=== PATIENT | male | born 1980 | race Caucasian/White ===

== ENCOUNTER 2018-10-14 20:04 | Inpatient (IN) | payer MEDICAID, OTHER ==
[~2018-10-14] VITALS: Ht 175.3 cm; Wt 74.1 kg
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
[2018-10-14] MEDS ORDERED: LORazepam 2 MG/ML, 1ML ONE ×4 (20:15→22:00)
[2018-10-14] MEDS ORDERED: ADENOSINE 6 MG/2 ML ONE (20:23)
--- NOTE | 2018-10-14 20:27 | NUR ---
REPORT OF PT TO MANOJ LUIS AND ALL QUESTIONS ANSWERED. PT MOVED FROM ROOM TO TRAUMA ROOM PER DR. MÁRQUEZ. GERMAIN PRICE ACCURACY SUPERVISOR NOTIFIED. PT MOVED TO TRAUMA 4 AT THIS TIME.
[2018-10-14] MEDS ORDERED: DIAZEPAM 5 MG/ML, 2ML IVPush PRN (20:30)
[2018-10-14] MEDS ORDERED: SODIUM CHLORIDE 0.9% 1,000ML IVBOLUS ONE ×2 (20:30→21:30)
[2018-10-14] MEDS ORDERED: ONDANSETRON 2MG/ML, 2ML IVPush ONE (20:30)
[2018-10-14] MEDS ORDERED: LORazepam 2 MG/ML, 1ML IVPush PRN (20:30)
[2018-10-14] MEDS ORDERED: MAGNESIUM SULFATE 1 GM, THIAMINE 100 MG, FOLIC ACID 1 MG, MVI ADULT 10 ML in SODIUM CHL... IV ONE (20:30)
[2018-10-14] MEDS ORDERED: SODIUM CHLORIDE FLUSH 10ML SYR IVF ONE (20:30)
[2018-10-14] MEDS ORDERED: ADENOSINE 6 MG/2 ML IVPush ONE ×3 (20:30→21:00)
[2018-10-14] MEDS ORDERED: LORazepam 2 MG/ML, 1ML IVPush ONE ×2 (20:30→21:00)
[2018-10-14] MEDS ORDERED: DILTIAZEM 5 MG/ML, 5ML ONE (20:33)
[2018-10-14] MEDS ORDERED: DILTIAZEM 125 MG in SODIUM CHLORIDE 0.9% 100 ML IV SCH (20:36)
--- NOTE | 2018-10-14 20:38 | NUR ---
TASK RN: PT TRANSFERED TO T4 FOLLOWING WITNESS SZ. PT POSTICTAL SP SZ. HR 200'S. PT MEDICATED PER ERP VERBAL ORDER FOR TX OF PRESUMED SVT. ERP AT BEDSIDE. ADENOSINE GIVEN WO CHANGE IN ARRHYTHMIA. VERBAL ORDER RECIEVED FOR CARDIZEM, 10MG W IMPROVEMENT IN HR. PT IN AFIB RVR, RATE 150'S. RESPIRATIONS EVEN/UNLABORED. POSSIBLE LACERATION NOTED ON TONGUE; AIRWAY PATENT. PT DOES NOT APPEAR TO HAVE BEEN INCONTINENT. PT ALERT, ORIENTED TO SELF AND DATE W/ GRADUAL IMPROVEMENT ORIENTATION. CARDIZEM REQUESTED FROM PHARMACY.
[2018-10-14 20:59] LABS: ALANINE AMINOTRANSFERASE 159 U/L (12-78); ALBUMIN 3.4 g/dL (3.4-5.0); ANION GAP 29 mmol/L (5-15); CALCIUM 8.7 mg/dL (8.5-10.1); CHLORIDE 90 mmol/L (98-107); CREATININE 1.33 mg/dL (0.7-1.3)
[2018-10-14] MEDS ORDERED: ONDANSETRON 2MG/ML, 2ML ONE (21:00)
[2018-10-14] MEDS ORDERED: DILTIAZEM 5 MG/ML, 5ML IV ONE (21:00)
[2018-10-14] MEDS ORDERED: MIDAZOLAM 1 MG/ML, 2ML IVPush ONE (21:00)
[2018-10-14] MEDS ORDERED: MIDAZOLAM 1 MG/ML, 2ML ONE (21:00)
[2018-10-14 21:02] LABS: ALKALINE PHOSPHATASE 121 U/L (45-117); BILIRUBIN,TOTAL 1.7 mg/dL (0.2-1.0); TOTAL PROTEIN 7.9 g/dL (6.4-8.2)
--- NOTE | 2018-10-14 21:13 | NUR ---
HOSPITALIST AT BEDSIDE FOR ASSESSMENT
--- NOTE | 2018-10-14 21:13 | NUR ---
PT HR STILL ELEVATED 160-180, CARDIZEM DRIP GOING WELL FLUIDS. VERSED AND ATIVAN GIVEN. AWARE
[2018-10-14] MEDS ORDERED: METOPROLOL 1 MG/ML, 5ML ONE (21:15)
--- NOTE | 2018-10-14 21:19 | NUR ---
INSTRUCTIONS FROM HOSPITALIST TO INCREASE CARDIZEM DRIP FROM 10 TO 15 IF HR PERSISTS ABOVE 150.
[2018-10-14] MEDS ORDERED: METOPROLOL 1 MG/ML, 5ML IVPush STA (21:20)
--- NOTE | 2018-10-14 21:21 | NUR ---
METOPROLOL 5MG IV GIVEN PER VERBAL ORDER. HR DECREASING FROM 160-170 DOWN TO 130S. WILL CONTINUE TO MONITOR
[2018-10-14 21:22] LABS: BASOPHILS # (AUTO) 0.02 x10^3/uL (0-0.1); BASOPHILS % (AUTO) 0 % (0-1); EOSINOPHILS % (AUTO) 0 % (1-7); LYMPHOCYTES # (AUTO) 0.72 x10^3/uL (1-3.4); LYMPHOCYTES % (AUTO) 3 % (22-44); MD SCAN; MEAN CORPUSCULAR HGB CONC 33.6 g/dL (33.2-36.2); MEAN PLATELET VOLUME 11.1 fL (7.4-10.4); MONOCYTES # (AUTO) 2.32 x10^3/uL (0.2-0.8); MONOCYTES % (AUTO) 10 % (2-9); NEUTROPHILS # (AUTO) 21.21 x10^3/uL (1.8-6.8); NEUTROPHILS % (AUTO) 87 % (42-75); PLATELET COUNT 90 x10^3/uL (130-400); RED BLOOD COUNT 4.06 x10^6/uL (4.38-5.82); RED CELL DISTRIBUTION WIDTH 13.4 % (9.4-14.8)
[2018-10-14 21:42] LABS: SALICYLATE LEVEL < 1.7 mg/dL (2.8-20.0)
[2018-10-14 21:52] LABS: CULTURE INDICATED? YES; MICROSCOPIC INDICATED
--- NOTE | 2018-10-14 21:54 | NUR ---
REPORT GIVEN TO LEVON ARANDA, PT READY FOR TRANSPORT TO FLOOR
[2018-10-14 21:57] LABS: AMPHETAMINE SCREEN, URINE Negative (Negative); BARBITURATE SCREEN, URINE Negative (Negative); BENZODIAZEPINE SCREEN, URINE Negative (Negative); CANNABINOID SCREEN, URINE Negative (Negative); COCAINE SCREEN, URINE Negative (Negative); METHADONE SCREEN, URINE Negative (Negative); OPIATE SCREEN, URINE Negative (Negative)
[2018-10-14] MEDS ORDERED: PHENOBARBITAL ETOH DETOX PER PHARMACY MC PRN (22:00)
[2018-10-14] MEDS ORDERED: MAGNESIUM SULFATE PMX 2GM/50ML 50 ML IV ONE (22:00)
[2018-10-14] MEDS ORDERED: SODIUM CHLORIDE 0.9% IV ONE (22:30)
[2018-10-14] MEDS ORDERED: PHENOBARBITAL SODIUM IV ONE (22:30)
[2018-10-15] MEDS ORDERED: MIDAZOLAM 1 MG/ML, 2ML IVPush ONE (00:30)
[2018-10-15] MEDS ORDERED: SODIUM CHLORIDE 0.9% IV ONE ×2 (01:30→19:30)
[2018-10-15] MEDS ORDERED: PHENOBARBITAL SODIUM IV ONE (01:30)
[2018-10-15 03:05] LABS: MEAN CORPUSCULAR HEMOGLOBIN 36.1 pg (27.5-34.5); MEAN CORPUSCULAR HGB CONC 33.4 g/dL (33.2-36.2); MEAN CORPUSCULAR VOLUME 108.2 fL (81-97); MEAN PLATELET VOLUME 10.5 fL (7.4-10.4); PLATELET COUNT 79 x10^3/uL (130-400); RED BLOOD COUNT 3.83 x10^6/uL (4.38-5.82); RED CELL DISTRIBUTION WIDTH 13.9 % (9.4-14.8)
[2018-10-15 03:06] LABS: BASOPHILS % (AUTO) 0 % (0-1); EOSINOPHILS % (AUTO) 0 % (1-7); LYMPHOCYTES # (AUTO) 0.47 x10^3/uL (1-3.4); LYMPHOCYTES % (AUTO) 3 % (22-44); MD SCAN; MONOCYTES # (AUTO) 1.45 x10^3/uL (0.2-0.8); MONOCYTES % (AUTO) 9 % (2-9); NEUTROPHILS # (AUTO) 13.94 x10^3/uL (1.8-6.8); NEUTROPHILS % (AUTO) 88 % (42-75)
[2018-10-15 04:00] VITALS: BP 121/72
[2018-10-15 04:36] LABS: MEAN CORPUSCULAR HEMOGLOBIN 36.9 pg (27.5-34.5); MEAN CORPUSCULAR HGB CONC 34.1 g/dL (33.2-36.2); MEAN CORPUSCULAR VOLUME 108.3 fL (81-97); RED BLOOD COUNT 3.64 x10^6/uL (4.38-5.82); RED CELL DISTRIBUTION WIDTH 13.7 % (9.4-14.8)
[2018-10-15 04:38] LABS: ALANINE AMINOTRANSFERASE 130 U/L (12-78); ALBUMIN 3.2 g/dL (3.4-5.0); ANION GAP 16 mmol/L (5-15); CALCIUM 8.3 mg/dL (8.5-10.1); CHLORIDE 99 mmol/L (98-107); CREATININE 0.81 mg/dL (0.7-1.3)
[2018-10-15 04:48] LABS: ALKALINE PHOSPHATASE 103 U/L (45-117); BILIRUBIN,TOTAL 1.7 mg/dL (0.2-1.0); THYROID STIMULATING HORMONE 0.515 mIU/L (0.358-3.740); TOTAL PROTEIN 6.9 g/dL (6.4-8.2)
[2018-10-15] MEDS: SODIUM CHLORIDE 0.9% 1,000 ML IV SCH ×2 (04:53→05:19)
[2018-10-15] MEDS ORDERED: MAGNESIUM SULFATE PMX 2GM/50ML 50 ML ONE (04:55)
[2018-10-15 05:40] LABS: BASOPHILS % (AUTO) 0 % (0-1); EOSINOPHILS % (AUTO) 0 % (1-7); LYMPHOCYTES # (AUTO) 0.33 x10^3/uL (1-3.4); LYMPHOCYTES % (AUTO) 2 % (22-44); MD SCAN; MEAN PLATELET VOLUME 11.1 fL (7.4-10.4); MONOCYTES # (AUTO) 1.17 x10^3/uL (0.2-0.8); MONOCYTES % (AUTO) 9 % (2-9); NEUTROPHILS # (AUTO) 12.13 x10^3/uL (1.8-6.8); NEUTROPHILS % (AUTO) 89 % (42-75); PLATELET COUNT 73 x10^3/uL (130-400)
[2018-10-15] MEDS ORDERED: SODIUM PHOSPHATE 20 MMOL in SODIUM CHLORIDE 0.9% 500 ML IV ONE (07:00)
[2018-10-15] MEDS ORDERED: POTASSIUM CHLORIDE 20 MEQ, MAGNESIUM SULFATE 1 GM, FOLIC ACID 1 MG, THIAMINE 200 MG, MV... IV SCH (09:00)
[2018-10-15] MEDS: LACTULOSE 20 GM/30 ML UDC PO SCH ×2 (09:16→21:40)
[2018-10-15] MEDS: FAMOTIDINE 20 MG/2 ML IVPush SCH ×2 (09:16→21:40)
[2018-10-15] MEDS: PHENOBARBITAL SODIUM 65 MG/ML, 1ML IM SCH (11:49)
[2018-10-15] MEDS ORDERED: POTASSIUM PHOSPHATE IV ONE (19:30)
[2018-10-15] MEDS ORDERED: POTASSIUM PHOSPHATE 66 MEQ in SODIUM CHLORIDE 0.9% 1,000 ML IV ONE (20:00)
[2018-10-15] MEDS ORDERED: SODIUM CHLORIDE 0.9% 1,000 ML IV SCH (21:27)
[2018-10-16] MEDS: PHENOBARBITAL SODIUM 65 MG/ML, 1ML IM SCH (00:52)
[2018-10-16 04:00] VITALS: BP 116/84
[2018-10-16 04:18] LABS: MEAN CORPUSCULAR VOLUME 108.7 fL (81-97); MEAN PLATELET VOLUME 11.2 fL (7.4-10.4); PLATELET COUNT 81 x10^3/uL (130-400); RED BLOOD COUNT 3.28 x10^6/uL (4.38-5.82); RED CELL DISTRIBUTION WIDTH 13.7 % (9.4-14.8)
[2018-10-16 04:28] LABS: ALANINE AMINOTRANSFERASE 120 U/L (12-78); ALBUMIN 2.9 g/dL (3.4-5.0); ANION GAP 10 mmol/L (5-15); CALCIUM 8.3 mg/dL (8.5-10.1); CHLORIDE 100 mmol/L (98-107); CREATININE 0.57 mg/dL (0.7-1.3)
[2018-10-16 04:31] LABS: ALKALINE PHOSPHATASE 122 U/L (45-117); BILIRUBIN,TOTAL 1.2 mg/dL (0.2-1.0); TOTAL PROTEIN 6.6 g/dL (6.4-8.2)
[2018-10-16 04:44] LABS: BASOPHILS # (AUTO) 0.02 x10^3/uL (0-0.1); BASOPHILS % (AUTO) 0 % (0-1); EOSINOPHILS # (AUTO) 0.01 x10^3/uL (0-0.4); EOSINOPHILS % (AUTO) 0 % (1-7); LYMPHOCYTES # (AUTO) 0.56 x10^3/uL (1-3.4); LYMPHOCYTES % (AUTO) 5 % (22-44); MD SCAN; MONOCYTES # (AUTO) 1.25 x10^3/uL (0.2-0.8); MONOCYTES % (AUTO) 11 % (2-9); NEUTROPHILS # (AUTO) 9.53 x10^3/uL (1.8-6.8); NEUTROPHILS % (AUTO) 84 % (42-75)
[2018-10-16] MEDS: PHENOBARBITAL 20 MG/5 ML ORAL SOL PO SCH ×2 (09:39→21:16)
[2018-10-16] MEDS: POTASSIUM CHLORIDE 20 MEQ TAB.ER.PRT PO SCH ×2 (09:39→18:13)
[2018-10-16] MEDS: FAMOTIDINE 20 MG/2 ML IVPush SCH (09:39)
[2018-10-16] MEDS: NEUTRA PHOS K 250 MG TABLET PO SCH ×2 (09:39→21:16)
[2018-10-16 20:33] VITALS: BP 116/80
[2018-10-16] MEDS ORDERED: FAMOTIDINE 20 MG TABLET ONE (21:10)
[2018-10-16] MEDS: FAMOTIDINE 20 MG TABLET PO SCH (21:16)
[2018-10-16 22:25] VITALS: BP 124/80
[2018-10-17 01:56] VITALS: BP 124/84
[2018-10-17 06:37] LABS: MEAN CORPUSCULAR HEMOGLOBIN 36.9 pg (27.5-34.5); MEAN CORPUSCULAR HGB CONC 33.7 g/dL (33.2-36.2); MEAN CORPUSCULAR VOLUME 109.5 fL (81-97); PLATELET COUNT 148 x10^3/uL (130-400); RED BLOOD COUNT 3.62 x10^6/uL (4.38-5.82); RED CELL DISTRIBUTION WIDTH 14.1 % (9.4-14.8)
[2018-10-17 06:46] LABS: ALANINE AMINOTRANSFERASE 167 U/L (12-78); ALBUMIN 3.1 g/dL (3.4-5.0); ANION GAP 8 mmol/L (5-15); CALCIUM 8.8 mg/dL (8.5-10.1); CHLORIDE 98 mmol/L (98-107); CREATININE 0.56 mg/dL (0.7-1.3)
[2018-10-17 06:49] LABS: ALKALINE PHOSPHATASE 144 U/L (45-117); BILIRUBIN,TOTAL 1.5 mg/dL (0.2-1.0); TOTAL PROTEIN 7.5 g/dL (6.4-8.2)
[2018-10-17 07:17] LABS: BASOPHILS # (AUTO) 0.07 x10^3/uL (0-0.1); BASOPHILS % (AUTO) 1 % (0-1); EOSINOPHILS # (AUTO) 0.08 x10^3/uL (0-0.4); EOSINOPHILS % (AUTO) 1 % (1-7); LYMPHOCYTES # (AUTO) 1.16 x10^3/uL (1-3.4); LYMPHOCYTES % (AUTO) 10 % (22-44); MD SCAN; MONOCYTES # (AUTO) 1.51 x10^3/uL (0.2-0.8); MONOCYTES % (AUTO) 13 % (2-9); NEUTROPHILS # (AUTO) 8.81 x10^3/uL (1.8-6.8); NEUTROPHILS % (AUTO) 76 % (42-75)
[2018-10-17 07:19] VITALS: BP 112/72
[2018-10-17] MEDS: PHENOBARBITAL 20 MG/5 ML ORAL SOL PO SCH ×2 (09:26→20:37)
[2018-10-17] MEDS: NEUTRA PHOS K 250 MG TABLET PO SCH ×2 (09:26→20:37)
[2018-10-17] MEDS: FAMOTIDINE 20 MG TABLET PO SCH ×2 (09:27→20:37)
[2018-10-17 12:55] VITALS: BP 118/72
[2018-10-17 19:14] VITALS: BP 108/75
[2018-10-18 01:13] VITALS: BP 118/81
[2018-10-18 05:55] LABS: MEAN CORPUSCULAR HGB CONC 33.5 g/dL (33.2-36.2); MEAN CORPUSCULAR VOLUME 107.5 fL (81-97); MEAN PLATELET VOLUME 8.9 fL (7.4-10.4); PLATELET COUNT 213 x10^3/uL (130-400); RED CELL DISTRIBUTION WIDTH 13.9 % (9.4-14.8)
[2018-10-18 06:09] LABS: CHLORIDE 100 mmol/L (98-107)
[2018-10-18 06:16] LABS: ANION GAP 8 mmol/L (5-15); CALCIUM 8.8 mg/dL (8.5-10.1); CREATININE 0.55 mg/dL (0.7-1.3)
[2018-10-18 07:04] VITALS: BP 111/76
[2018-10-18 07:27] LABS: BASOPHILS # (AUTO) 0.05 x10^3/uL (0-0.1); BASOPHILS % (AUTO) 0 % (0-1); EOSINOPHILS # (AUTO) 0.15 x10^3/uL (0-0.4); EOSINOPHILS % (AUTO) 1 % (1-7); LYMPHOCYTES # (AUTO) 1.22 x10^3/uL (1-3.4); LYMPHOCYTES % (AUTO) 10 % (22-44); MD SCAN; MONOCYTES # (AUTO) 1.75 x10^3/uL (0.2-0.8); MONOCYTES % (AUTO) 15 % (2-9); NEUTROPHILS # (AUTO) 8.55 x10^3/uL (1.8-6.8); NEUTROPHILS % (AUTO) 73 % (42-75)
[2018-10-18 08:11] LABS: BILIRUBIN, DIRECT 0.3 mg/dL (0.1-0.2)
[2018-10-18 08:13] LABS: BILIRUBIN,INDIRECT 0.4 mg/dL (0.0-2.0); BILIRUBIN,TOTAL 0.7 mg/dL (0.2-1.0); TOTAL PROTEIN 7.5 g/dL (6.4-8.2)
[2018-10-18] MEDS: PHENOBARBITAL 20 MG/5 ML ORAL SOL PO SCH ×2 (08:34→20:36)
[2018-10-18] MEDS: NEUTRA PHOS K 250 MG TABLET PO SCH ×2 (08:34→20:36)
[2018-10-18] MEDS: POTASSIUM CHLORIDE 20 MEQ, MAGNESIUM SULFATE 1 GM, FOLIC ACID 1 MG, THIAMINE 200 MG, MV... IV SCH (08:34)
[2018-10-18] MEDS: FAMOTIDINE 20 MG TABLET PO SCH ×2 (08:34→20:36)
[2018-10-18] MEDS ORDERED: POTASSIUM CHLORIDE 20 MEQ TAB.ER.PRT PO ONE (09:00)
[2018-10-18 12:15] VITALS: BP 109/72
[2018-10-18] MEDS: POTASSIUM CHLORIDE 20 MEQ TAB.ER.PRT PO SCH ×2 (16:10→20:36)
[2018-10-18 18:49] VITALS: BP 119/81
[2018-10-18] MEDS: MAGNESIUM OXIDE 400 MG TABLET PO SCH (20:36)
[2018-10-19 01:37] VITALS: BP 113/69
[2018-10-19 06:55] VITALS: BP 104/64
[2018-10-19 08:10] LABS: ALANINE AMINOTRANSFERASE 208 U/L (12-78); ALBUMIN 2.8 g/dL (3.4-5.0); ANION GAP 7 mmol/L (5-15); CALCIUM 8.6 mg/dL (8.5-10.1); CHLORIDE 112 mmol/L (98-107); CREATININE 0.52 mg/dL (0.7-1.3)
[2018-10-19 08:12] LABS: ALKALINE PHOSPHATASE 127 U/L (45-117); BILIRUBIN,TOTAL 0.5 mg/dL (0.2-1.0); TOTAL PROTEIN 6.7 g/dL (6.4-8.2)
[2018-10-19 08:20] LABS: MEAN CORPUSCULAR HEMOGLOBIN 35.7 pg (27.5-34.5); MEAN CORPUSCULAR HGB CONC 32.9 g/dL (33.2-36.2); MEAN CORPUSCULAR VOLUME 108.5 fL (81-97); MEAN PLATELET VOLUME 8.4 fL (7.4-10.4); PLATELET COUNT 264 x10^3/uL (130-400); RED BLOOD COUNT 3.45 x10^6/uL (4.38-5.82); RED CELL DISTRIBUTION WIDTH 14.1 % (9.4-14.8)
[2018-10-19 08:47] LABS: BASOPHILS # (AUTO) 0.05 x10^3/uL (0-0.1); BASOPHILS % (AUTO) 1 % (0-1); EOSINOPHILS # (AUTO) 0.26 x10^3/uL (0-0.4); EOSINOPHILS % (AUTO) 2 % (1-7); LYMPHOCYTES # (AUTO) 1.23 x10^3/uL (1-3.4); LYMPHOCYTES % (AUTO) 12 % (22-44); MD MORPH REVIEW ONLY; MONOCYTES # (AUTO) 1.58 x10^3/uL (0.2-0.8); MONOCYTES % (AUTO) 15 % (2-9); NEUTROPHILS # (AUTO) 7.58 x10^3/uL (1.8-6.8); NEUTROPHILS % (AUTO) 71 % (42-75)
[2018-10-19 08:48] LABS: <PLATELET ESTIMATE> ADEQUATE; <PLT MORPHOLOGY> NORMAL PLT MORPH
[2018-10-19] MEDS: POTASSIUM CHLORIDE 20 MEQ, MAGNESIUM SULFATE 1 GM, FOLIC ACID 1 MG, THIAMINE 200 MG, MV... IV SCH (09:51)
[2018-10-19] MEDS: MAGNESIUM OXIDE 400 MG TABLET PO SCH ×2 (09:53→20:16)
[2018-10-19] MEDS: NEUTRA PHOS K 250 MG TABLET PO SCH ×2 (09:53→20:17)
[2018-10-19] MEDS: POTASSIUM CHLORIDE 20 MEQ TAB.ER.PRT PO SCH ×3 (09:54→20:17)
[2018-10-19] MEDS: FAMOTIDINE 20 MG TABLET PO SCH ×2 (09:54→20:16)
[2018-10-19] MEDS: PHENOBARBITAL 20 MG/5 ML ORAL SOL PO SCH ×2 (10:04→20:17)
[2018-10-19 12:23] VITALS: BP 110/76
[2018-10-19 18:49] VITALS: BP 109/76
[2018-10-20 02:00] VITALS: BP 120/85
[2018-10-20 04:57] LABS: MEAN CORPUSCULAR HEMOGLOBIN 35.7 pg (27.5-34.5); MEAN CORPUSCULAR VOLUME 108.3 fL (81-97); MEAN PLATELET VOLUME 8.2 fL (7.4-10.4); PLATELET COUNT 331 x10^3/uL (130-400); RED BLOOD COUNT 3.59 x10^6/uL (4.38-5.82); RED CELL DISTRIBUTION WIDTH 14.4 % (9.4-14.8)
[2018-10-20 05:03] LABS: ANION GAP 7 mmol/L (5-15); CALCIUM 8.9 mg/dL (8.5-10.1); CHLORIDE 107 mmol/L (98-107)
[2018-10-20 05:07] LABS: ALANINE AMINOTRANSFERASE 225 U/L (12-78); ALKALINE PHOSPHATASE 128 U/L (45-117); BILIRUBIN,TOTAL 0.6 mg/dL (0.2-1.0); CREATININE 0.51 mg/dL (0.7-1.3); TOTAL PROTEIN 7.4 g/dL (6.4-8.2)
[2018-10-20 05:45] LABS: BASOPHILS # (AUTO) 0.05 x10^3/uL (0-0.1); BASOPHILS % (AUTO) 1 % (0-1); EOSINOPHILS # (AUTO) 0.28 x10^3/uL (0-0.4); EOSINOPHILS % (AUTO) 3 % (1-7); LYMPHOCYTES % (AUTO) 11 % (22-44); MD SCAN; MONOCYTES # (AUTO) 1.63 x10^3/uL (0.2-0.8); MONOCYTES % (AUTO) 14 % (2-9); NEUTROPHILS # (AUTO) 8.14 x10^3/uL (1.8-6.8); NEUTROPHILS % (AUTO) 71 % (42-75)
[2018-10-20 07:05] VITALS: BP 125/79
[2018-10-20] MEDS: POTASSIUM CHLORIDE 20 MEQ, MAGNESIUM SULFATE 1 GM, FOLIC ACID 1 MG, THIAMINE 200 MG, MV... IV SCH (11:01)
[2018-10-20] MEDS: NEUTRA PHOS K 250 MG TABLET PO SCH ×2 (11:02→20:27)
[2018-10-20] MEDS: FAMOTIDINE 20 MG TABLET PO SCH ×2 (11:02→20:26)
[2018-10-20] MEDS: MAGNESIUM OXIDE 400 MG TABLET PO SCH ×2 (11:02→20:26)
[2018-10-20] MEDS: POTASSIUM CHLORIDE 20 MEQ TAB.ER.PRT PO SCH ×3 (11:02→20:26)
[2018-10-20] MEDS: PHENOBARBITAL 20 MG/5 ML ORAL SOL PO SCH ×2 (11:07→20:26)
[2018-10-20 13:59] VITALS: BP 128/74
[2018-10-20 19:05] VITALS: BP 108/75
[2018-10-21 01:00] VITALS: BP 105/72
[2018-10-21 06:12] LABS: CALCIUM 9.2 mg/dL (8.5-10.1); CHLORIDE 106 mmol/L (98-107)
[2018-10-21 06:17] LABS: MEAN CORPUSCULAR HEMOGLOBIN 36.1 pg (27.5-34.5); MEAN CORPUSCULAR HGB CONC 33.2 g/dL (33.2-36.2); MEAN CORPUSCULAR VOLUME 108.9 fL (81-97); MEAN PLATELET VOLUME 8.4 fL (7.4-10.4); PLATELET COUNT 409 x10^3/uL (130-400); RED BLOOD COUNT 3.64 x10^6/uL (4.38-5.82); RED CELL DISTRIBUTION WIDTH 13.9 % (9.4-14.8)
[2018-10-21 06:20] LABS: ALANINE AMINOTRANSFERASE 223 U/L (12-78); ALBUMIN 3.1 g/dL (3.4-5.0); ALKALINE PHOSPHATASE 126 U/L (45-117); ANION GAP 7 mmol/L (5-15); BILIRUBIN,TOTAL 0.7 mg/dL (0.2-1.0); CREATININE 0.54 mg/dL (0.7-1.3); TOTAL PROTEIN 7.6 g/dL (6.4-8.2)
[2018-10-21 06:49] LABS: BASOPHILS % (AUTO) 1 % (0-1); EOSINOPHILS # (AUTO) 0.33 x10^3/uL (0-0.4); EOSINOPHILS % (AUTO) 3 % (1-7); LYMPHOCYTES # (AUTO) 1.24 x10^3/uL (1-3.4); LYMPHOCYTES % (AUTO) 12 % (22-44); MD SCAN; MONOCYTES # (AUTO) 1.88 x10^3/uL (0.2-0.8); MONOCYTES % (AUTO) 18 % (2-9); NEUTROPHILS # (AUTO) 6.92 x10^3/uL (1.8-6.8); NEUTROPHILS % (AUTO) 66 % (42-75)
[2018-10-21 07:08] VITALS: BP 110/76
[2018-10-21] MEDS: POTASSIUM CHLORIDE 20 MEQ, MAGNESIUM SULFATE 1 GM, FOLIC ACID 1 MG, THIAMINE 200 MG, MV... IV SCH (09:30)
[2018-10-21] MEDS: NEUTRA PHOS K 250 MG TABLET PO SCH ×2 (10:50→20:11)
[2018-10-21] MEDS: POTASSIUM CHLORIDE 20 MEQ TAB.ER.PRT PO SCH ×3 (10:51→20:11)
[2018-10-21] MEDS: MAGNESIUM OXIDE 400 MG TABLET PO SCH ×2 (10:51→20:11)
[2018-10-21] MEDS: FAMOTIDINE 20 MG TABLET PO SCH ×2 (10:51→20:11)
[2018-10-21 12:57] VITALS: BP 114/79
[2018-10-21] MEDS ORDERED: OMNIPAQUE 350 MG/ML, 100ML BOTTLE ONE (17:04)
[2018-10-21 18:45] VITALS: BP 118/77
[2018-10-22 00:46] VITALS: BP 110/76
[2018-10-22 06:01] LABS: ALBUMIN 3.4 g/dL (3.4-5.0); ANION GAP 8 mmol/L (5-15); CALCIUM 9.8 mg/dL (8.5-10.1); CHLORIDE 106 mmol/L (98-107)
[2018-10-22 06:09] LABS: ALANINE AMINOTRANSFERASE 220 U/L (12-78); ALKALINE PHOSPHATASE 137 U/L (45-117); BILIRUBIN,TOTAL 0.4 mg/dL (0.2-1.0); CREATININE 0.67 mg/dL (0.7-1.3); TOTAL PROTEIN 8.1 g/dL (6.4-8.2)
[2018-10-22 08:25] VITALS: BP 101/69
[2018-10-22] MEDS: FAMOTIDINE 20 MG TABLET PO SCH ×2 (08:32→21:03)
[2018-10-22] MEDS: MAGNESIUM OXIDE 400 MG TABLET PO SCH ×2 (08:32→21:03)
[2018-10-22] MEDS: POTASSIUM CHLORIDE 20 MEQ, MAGNESIUM SULFATE 1 GM, FOLIC ACID 1 MG, THIAMINE 200 MG, MV... IV SCH (08:32)
[2018-10-22] MEDS: NEUTRA PHOS K 250 MG TABLET PO SCH ×2 (08:32→21:03)
[2018-10-22] MEDS: POTASSIUM CHLORIDE 20 MEQ TAB.ER.PRT PO SCH ×3 (08:32→21:03)
[2018-10-22 14:28] VITALS: BP 105/71
[2018-10-22 18:22] VITALS: BP 103/68
[2018-10-23 00:37] VITALS: BP 111/74
[2018-10-23 05:59] LABS: CALCIUM 9.3 mg/dL (8.5-10.1); CHLORIDE 104 mmol/L (98-107)
[2018-10-23 06:01] LABS: MEAN CORPUSCULAR HEMOGLOBIN 36.2 pg (27.5-34.5); MEAN CORPUSCULAR HGB CONC 33.4 g/dL (33.2-36.2); MEAN CORPUSCULAR VOLUME 108.6 fL (81-97); MEAN PLATELET VOLUME 8.7 fL (7.4-10.4); PLATELET COUNT 479 x10^3/uL (130-400); RED BLOOD COUNT 3.78 x10^6/uL (4.38-5.82); RED CELL DISTRIBUTION WIDTH 13.8 % (9.4-14.8)
[2018-10-23 06:07] LABS: ALANINE AMINOTRANSFERASE 186 U/L (12-78); ALBUMIN 3.3 g/dL (3.4-5.0); ALKALINE PHOSPHATASE 124 U/L (45-117); ANION GAP 7 mmol/L (5-15); BILIRUBIN,TOTAL 0.6 mg/dL (0.2-1.0); CREATININE 0.77 mg/dL (0.7-1.3); TOTAL PROTEIN 7.8 g/dL (6.4-8.2)
[2018-10-23 07:54] LABS: BASOPHILS # (AUTO) 0.15 x10^3/uL (0-0.1); BASOPHILS % (AUTO) 1 % (0-1); EOSINOPHILS # (AUTO) 0.32 x10^3/uL (0-0.4); EOSINOPHILS % (AUTO) 3 % (1-7); LYMPHOCYTES # (AUTO) 1.75 x10^3/uL (1-3.4); LYMPHOCYTES % (AUTO) 16 % (22-44); MD SCAN; MONOCYTES # (AUTO) 1.85 x10^3/uL (0.2-0.8); MONOCYTES % (AUTO) 17 % (2-9); NEUTROPHILS % (AUTO) 64 % (42-75)
[2018-10-23] MEDS: POTASSIUM CHLORIDE 20 MEQ TAB.ER.PRT PO SCH ×3 (09:00→19:29)
[2018-10-23 09:02] VITALS: BP 103/74
[2018-10-23] MEDS: POTASSIUM CHLORIDE 20 MEQ, MAGNESIUM SULFATE 1 GM, FOLIC ACID 1 MG, THIAMINE 200 MG, MV... IV SCH (09:30)
[2018-10-23] MEDS ORDERED: BUPIVACAINE/PF 0.5% ONE (11:21)
[2018-10-23] MEDS ORDERED: MIDAZOLAM 1 MG/ML, 2ML ONE (11:54)
[2018-10-23] MEDS ORDERED: FENTANYL PF 250 MCG/5ML ONE (11:54)
[2018-10-23] MEDS ORDERED: PROPOFOL 10 MG/ML, 20ML ONE (11:56)
[2018-10-23] MEDS ORDERED: ROCURONIUM 10MG/ML,5ML ONE (11:56)
[2018-10-23] MEDS ORDERED: CEFAZOLIN 1,000 MG ONE (11:56)
[2018-10-23] MEDS ORDERED: GLYCOPYRROLATE 0.2MG/1ML, 5ML ONE (11:56)
[2018-10-23] MEDS ORDERED: SUCCINYLCHOLINE 20 MG/ML, 10ML ONE (11:56)
[2018-10-23] MEDS ORDERED: ONDANSETRON 2MG/ML, 2ML ONE (11:56)
[2018-10-23] MEDS ORDERED: NEOSTIGMINE 1 MG/ML, 10ML ONE (11:56)
[2018-10-23] MEDS ORDERED: DEXAMETHASONE 4 MG/ML, 1ML ONE (11:56)
[2018-10-23] MEDS: MAGNESIUM OXIDE 400 MG TABLET PO SCH ×2 (12:26→19:29)
[2018-10-23] MEDS: NEUTRA PHOS K 250 MG TABLET PO SCH ×2 (12:26→19:29)
[2018-10-23] MEDS: FAMOTIDINE 20 MG TABLET PO SCH ×2 (12:26→19:29)
[2018-10-23 16:10] VITALS: BP 105/72
[2018-10-23 19:28] VITALS: BP 104/68
[2018-10-24 02:26] VITALS: BP 101/64
[2018-10-24 08:55] VITALS: BP 102/68
[2018-10-24] MEDS: NEUTRA PHOS K 250 MG TABLET PO SCH (09:12)
[2018-10-24] MEDS: POTASSIUM CHLORIDE 20 MEQ TAB.ER.PRT PO SCH (09:12)
[2018-10-24] MEDS: MAGNESIUM OXIDE 400 MG TABLET PO SCH (09:12)
[2018-10-24] MEDS: FAMOTIDINE 20 MG TABLET PO SCH (09:13)
[2018-10-24] MEDS: POTASSIUM CHLORIDE 20 MEQ, MAGNESIUM SULFATE 1 GM, FOLIC ACID 1 MG, THIAMINE 200 MG, MV... IV SCH (09:14)
== END 2018-10-24 14:32 | disposition home or self-care (01) | DRG 441 ==
LOC: ED 21:25 → EDIP 21:27 → CCU 22:04 → 4EST 10-16 22:08
PROVIDERS: ADMIT Family Medicine; ATTEND Family Medicine
PROC: 5A2204Z Restoration of Cardiac Rhythm, Single (ICD-10-PCS; principal; 2018-10-14)
DX: K72.90 Hepatic failure, unspecified without coma (principal); K85.10 Biliary acute pancreatitis without necrosis or infection; G92 Toxic encephalopathy; K85.20 Alcohol induced acute pancreatitis without necrosis or infection; E87.1 Hypo-osmolality and hyponatremia; E87.2 Acidosis; F10.231 Alcohol dependence with withdrawal delirium; I47.1 Supraventricular tachycardia; D53.9 Nutritional anemia, unspecified; D69.6 Thrombocytopenia, unspecified; E83.39 Other disorders of phosphorus metabolism; E86.0 Dehydration; E87.6 Hypokalemia; F17.200 Nicotine dependence, unspecified, uncomplicated; I48.0 Paroxysmal atrial fibrillation; K70.11 Alcoholic hepatitis with ascites; K80.20 Calculus of gallbladder without cholecystitis without obstruction; R56.9 Unspecified convulsions; Z53.20 Procedure and treatment not carried out because of patient's decision for unspecified reasons
CPT/HCPCS: 36415; 36600; 87806; 99291; J3490; J7042; J7121; 70450; 71045; 74176; 74177; 76700; 80048; 80053; 80074; 80076; 80307; 81001; 82140; 82150; 82607; 82803; 83690; 83735; 84100; 84132; 84443; 85025; 87081; 87086; 93005; 96374; 96375; G0378; J0153; J0690; J1100; J2250; J2405; J2560; J2704; J2710; J3010; J3411; J3475; J3480; Q9967; G0475; J0330; J2060; J7030; J7040

== ENCOUNTER 2019-02-08 11:48 | Inpatient (IN) | payer OTHER ==
[~2019-02-08] VITALS: Ht 177.8 cm; Wt 70.4 kg
[2019-02-08] MEDS ORDERED: ONDANSETRON 2MG/ML, 2ML ONE (12:25)
[2019-02-08] MEDS ORDERED: FAMOTIDINE 20 MG/2 ML ONE (12:26)
[2019-02-08] MEDS ORDERED: FAMOTIDINE 20 MG/2 ML IV ONE (12:30)
[2019-02-08] MEDS ORDERED: SODIUM CHLORIDE 0.9% 1,000ML IVBOLUS ONE (12:30)
[2019-02-08] MEDS ORDERED: SODIUM CHLORIDE FLUSH 10ML SYR IVF ONE (12:30)
[2019-02-08] MEDS ORDERED: ONDANSETRON 2MG/ML, 2ML IVPush ONE (12:30)
[2019-02-08 12:32] LABS: BASOPHILS # (AUTO) 0.03 x10^3/uL (0-0.1); BASOPHILS % (AUTO) 0 % (0-1); EOSINOPHILS % (AUTO) 0 % (1-7); LYMPHOCYTES # (AUTO) 0.59 x10^3/uL (1-3.4); LYMPHOCYTES % (AUTO) 8 % (22-44); MD NO; MEAN CORPUSCULAR HEMOGLOBIN 32.9 pg (27.5-34.5); MEAN CORPUSCULAR VOLUME 96.7 fL (81-97); MEAN PLATELET VOLUME 8.9 fL (7.4-10.4); MONOCYTES # (AUTO) 0.61 x10^3/uL (0.2-0.8); MONOCYTES % (AUTO) 8 % (2-9); NEUTROPHILS # (AUTO) 6.06 x10^3/uL (1.8-6.8); NEUTROPHILS % (AUTO) 83 % (42-75); PLATELET COUNT 100 x10^3/uL (130-400); RED BLOOD COUNT 4.55 x10^6/uL (4.38-5.82); RED CELL DISTRIBUTION WIDTH 14.4 % (9.4-14.8)
--- NOTE | 2019-02-08 12:38 | NUR ---
pt in bed and in gown. pt medicated per order. pt resting comfortably at this time. nibpand o2 monitoring in place. call light in reach and pt to call before attempting to ambulate.
[2019-02-08 12:47] LABS: ALANINE AMINOTRANSFERASE 219 U/L (12-78); ALBUMIN 4.1 g/dL (3.4-5.0); ANION GAP 23 mmol/L (5-15); CALCIUM 8.3 mg/dL (8.5-10.1); CHLORIDE 88 mmol/L (98-107); CREATININE 0.72 mg/dL (0.7-1.3)
[2019-02-08 12:48] LABS: ALKALINE PHOSPHATASE 104 U/L (45-117); BILIRUBIN,TOTAL 1.2 mg/dL (0.2-1.0); TOTAL PROTEIN 8.2 g/dL (6.4-8.2)
--- NOTE | 2019-02-08 13:21 | NUR ---
pt resting in room at this time with eyes closed. pt arousable to voice. pt instructed on the need for a urine sample. cup is at bedside.
[2019-02-08] MEDS ORDERED: LACTATED RINGERS 1,000 ML IV SCH (14:00)
[2019-02-08] MEDS ORDERED: SODIUM CHLORIDE 0.9% 1,000 ML IV SCH (14:13)
[2019-02-08] MEDS ORDERED: ACETAMINOPHEN 325 MG TABLET PO PRN (14:30)
[2019-02-08] MEDS ORDERED: LORazepam 2 MG/ML, 1ML IV PRN ×3 (14:30)
[2019-02-08] MEDS ORDERED: ONDANSETRON ODT 4 MG PO PRN (14:30)
[2019-02-08] MEDS: NICOTINE 7 MG/24 HR PATCH.TD24 TD SCH (14:30)
[2019-02-08] MEDS ORDERED: ONDANSETRON 2MG/ML, 2ML IVPush PRN (14:30)
[2019-02-08] MEDS ORDERED: LORazepam 1MG TABLET PO PRN ×2 (14:30)
[2019-02-08] MEDS ORDERED: THIAMINE 100MG TABLET PO ONE (14:30)
[2019-02-08 15:17] LABS: INTERNATIONAL NORMALIZED RATIO 1.07 (0.93-1.1); PROTHROMBIN TIME 11.2 Seconds (9.6-11.5)
[2019-02-08 15:48] VITALS: BP 138/81
[2019-02-08] MEDS: LACTOBACILLUS CHEW TABLET PO SCH ×2 (16:00→21:05)
[2019-02-08] MEDS: CEFTRIAXONE PMX 1GM/50ML 50 ML IV SCH (16:37)
[2019-02-08] MEDS: LACTATED RINGERS 1,000 ML IV SCH ×2 (16:38→23:13)
[2019-02-08 19:10] VITALS: BP 144/73
[2019-02-08 21:05] VITALS: BP 136/81
[2019-02-08] MEDS: ONDANSETRON 2MG/ML, 2ML IVPush PRN (21:25)
[2019-02-08 21:34] LABS: MICROSCOPIC AUTO
[2019-02-08 21:35] LABS: CULTURE INDICATED? NO
[2019-02-09 01:12] VITALS: BP 116/77
[2019-02-09 02:24] LABS: ALBUMIN 3.6 g/dL (3.4-5.0); ANION GAP 18 mmol/L (5-15); CALCIUM 8.5 mg/dL (8.5-10.1); CHLORIDE 95 mmol/L (98-107)
[2019-02-09 02:27] LABS: ALANINE AMINOTRANSFERASE 180 U/L (12-78); ALKALINE PHOSPHATASE 87 U/L (45-117); BILIRUBIN,TOTAL 1.4 mg/dL (0.2-1.0); CREATININE 0.65 mg/dL (0.7-1.3); TOTAL PROTEIN 7.2 g/dL (6.4-8.2)
[2019-02-09 03:58] VITALS: BP 127/84
[2019-02-09] MEDS: ONDANSETRON 2MG/ML, 2ML IVPush PRN (04:02)
[2019-02-09] MEDS: LACTATED RINGERS 1,000 ML IV SCH ×3 (05:32→21:48)
[2019-02-09 06:47] VITALS: BP 145/82
[2019-02-09] MEDS ORDERED: PANTOPRAZOLE 40 MG IV IVPush SCH (07:30)
[2019-02-09] MEDS ORDERED: KETAMINE 10 MG/ML, 20ML ONE (08:26)
[2019-02-09] MEDS ORDERED: LIDOCAINE PF 2%, 5ML ONE (08:30)
[2019-02-09] MEDS ORDERED: PROPOFOL 10 MG/ML, 20ML ONE (08:30)
[2019-02-09] MEDS ORDERED: GLYCOPYRROLATE 0.2MG/1ML, 5ML ONE (08:30)
[2019-02-09] MEDS ORDERED: OXYcodone 5 MG/5 ML ORAL.SOL UDC PO PRN (09:00)
[2019-02-09] MEDS ORDERED: PROMETHAZINE 25 MG/ML, 1ML IV PRN (09:00)
[2019-02-09] MEDS ORDERED: LORazepam 2 MG/ML, 1ML IVPush PRN (09:00)
[2019-02-09] MEDS ORDERED: ONDANSETRON 2MG/ML, 2ML IV PRN (09:00)
[2019-02-09] MEDS ORDERED: FENTANYL PF 100 MCG/2ML IV PRN (09:00)
[2019-02-09] MEDS ORDERED: ONDANSETRON ODT 8 MG PO PRN (09:00)
[2019-02-09] MEDS: LACTOBACILLUS CHEW TABLET PO SCH ×3 (10:02→20:43)
[2019-02-09] MEDS: LORazepam 0.5MG TABLET PO PRN ×2 (12:22→20:44)
[2019-02-09] MEDS ORDERED: POTASSIUM CHLORIDE 20 MEQ TAB.ER.PRT PO ONE (13:00)
[2019-02-09] MEDS: NICOTINE 7 MG/24 HR PATCH.TD24 TD SCH (14:30)
[2019-02-09 15:09] VITALS: BP 144/86
[2019-02-09] MEDS: CEFTRIAXONE PMX 1GM/50ML 50 ML IV SCH (16:08)
[2019-02-09 19:52] VITALS: BP 127/81
[2019-02-09] MEDS: FAMOTIDINE 40 MG TABLET PO SCH (20:43)
[2019-02-10 02:30] LABS: ALANINE AMINOTRANSFERASE 149 U/L (12-78); ALBUMIN 3.3 g/dL (3.4-5.0); ANION GAP 7 mmol/L (5-15); CALCIUM 8.5 mg/dL (8.5-10.1); CHLORIDE 98 mmol/L (98-107); CREATININE 0.61 mg/dL (0.7-1.3)
[2019-02-10 02:32] LABS: ALKALINE PHOSPHATASE 80 U/L (45-117); BILIRUBIN,TOTAL 0.9 mg/dL (0.2-1.0); TOTAL PROTEIN 6.7 g/dL (6.4-8.2)
[2019-02-10 02:54] LABS: BASOPHILS # (AUTO) 0.04 x10^3/uL (0-0.1); BASOPHILS % (AUTO) 1 % (0-1); EOSINOPHILS # (AUTO) 0.07 x10^3/uL (0-0.4); EOSINOPHILS % (AUTO) 1 % (1-7); LYMPHOCYTES # (AUTO) 0.59 x10^3/uL (1-3.4); LYMPHOCYTES % (AUTO) 12 % (22-44); MD SCAN; MEAN CORPUSCULAR HEMOGLOBIN 33.1 pg (27.5-34.5); MEAN CORPUSCULAR HGB CONC 33.9 g/dL (33.2-36.2); MEAN CORPUSCULAR VOLUME 97.7 fL (81-97); MEAN PLATELET VOLUME 10.2 fL (7.4-10.4); MONOCYTES # (AUTO) 0.62 x10^3/uL (0.2-0.8); MONOCYTES % (AUTO) 12 % (2-9); NEUTROPHILS % (AUTO) 74 % (42-75); PLATELET COUNT 76 x10^3/uL (130-400); RED BLOOD COUNT 3.82 x10^6/uL (4.38-5.82); RED CELL DISTRIBUTION WIDTH 14.3 % (9.4-14.8)
[2019-02-10] MEDS: LORazepam 0.5MG TABLET PO PRN ×3 (03:03→21:19)
[2019-02-10 03:04] VITALS: BP 121/82
[2019-02-10] MEDS: LACTATED RINGERS 1,000 ML IV SCH ×2 (04:18→15:59)
[2019-02-10] MEDS: ONDANSETRON 2MG/ML, 2ML IVPush PRN (04:31)
[2019-02-10] MEDS: LACTOBACILLUS CHEW TABLET PO SCH ×3 (08:46→21:19)
[2019-02-10] MEDS ORDERED: POTASSIUM CHLORIDE 20 MEQ TAB.ER.PRT PO ONE (09:00)
[2019-02-10] MEDS ORDERED: MAGNESIUM SULFATE PMX 4GM/100M 100 ML IV ONE (09:00)
[2019-02-10 09:38] VITALS: BP 126/80
[2019-02-10 13:48] VITALS: BP 123/78
[2019-02-10] MEDS: NICOTINE 7 MG/24 HR PATCH.TD24 TD SCH (14:30)
[2019-02-10] MEDS: CEFTRIAXONE PMX 1GM/50ML 50 ML IV SCH (16:06)
[2019-02-10 18:50] VITALS: BP 115/73
[2019-02-10] MEDS: FAMOTIDINE 40 MG TABLET PO SCH (21:19)
[2019-02-10] MEDS ORDERED: AZITHROMYCIN 500 MG TABLET PO ONE (22:00)
[2019-02-11] MEDS: LACTATED RINGERS 1,000 ML IV SCH (06:28)
[2019-02-11 08:38] LABS: ANION GAP 8 mmol/L (5-15); CHLORIDE 99 mmol/L (98-107); CREATININE 0.68 mg/dL (0.7-1.3)
[2019-02-11 08:49] VITALS: BP 113/77
[2019-02-11] MEDS ORDERED: POTASSIUM CHLORIDE 20 MEQ TAB.ER.PRT PO ONE (09:30)
[2019-02-11] MEDS: LACTOBACILLUS CHEW TABLET PO SCH ×2 (09:57→16:00)
[2019-02-11] MEDS ORDERED: FAMO40TA4 PO (10:10)
[2019-02-11] MEDS ORDERED: NICO-485 TD (10:10)
[2019-02-11] MEDS ORDERED: ACID1TAB7 PO (10:10)
[2019-02-11 13:45] VITALS: BP 114/75
[2019-02-11] MEDS: NICOTINE 7 MG/24 HR PATCH.TD24 TD SCH (14:30)
[2019-02-11] MEDS ORDERED: LACTATED RINGERS 1,000 ML IV SCH (16:00)
== END 2019-02-11 18:35 | disposition home or self-care (01) | DRG 442 ==
LOC: ED 13:35 → EDIP 13:36 → ED 13:56 → 4WST 15:23
PROVIDERS: ADMIT Family Medicine; ATTEND Internal Medicine
PROC: 0DJ08ZZ Inspection of Upper Intestinal Tract, Via Natural or Artificial Opening Endoscopic (ICD-10-PCS; principal; 2019-02-09 09:30)
DX: K76.6 Portal hypertension (principal); E87.1 Hypo-osmolality and hyponatremia; E87.2 Acidosis; D69.59 Other secondary thrombocytopenia; E83.42 Hypomagnesemia; E87.6 Hypokalemia; G47.00 Insomnia, unspecified; I10 Essential (primary) hypertension; K70.11 Alcoholic hepatitis with ascites; R58 Hemorrhage, not elsewhere classified; I48.91 Unspecified atrial fibrillation; F10.229 Alcohol dependence with intoxication, unspecified; K31.89 Other diseases of stomach and duodenum
CPT/HCPCS: 36415; J3490; 80048; 80053; 81001; 83735; 85018; 85025; 85610; 93005; G0378; J0696; J2405; J2704; J2060; J3475; J7030; J7120

== ENCOUNTER 2019-11-23 13:47 | Inpatient (IN) | payer OTHER ==
[~2019-11-23] VITALS: Ht 175.3 cm; Wt 103.0 kg
[~2019-11-23 13:47] MED LIST: ACID1TAB7 PO; FAMO40TA4 PO; NICO-485 TD
[2019-11-23] MEDS ORDERED: FAMOTIDINE 20 MG/2 ML ONE (14:41)
[2019-11-23] MEDS ORDERED: THIAMINE 100 MG/ML, 2ML ONE (14:41)
[2019-11-23] MEDS ORDERED: ONDANSETRON 2MG/ML, 2ML ONE (14:41)
[2019-11-23] MEDS ORDERED: ONDANSETRON 2MG/ML, 2ML IVPush ONE (15:00)
[2019-11-23] MEDS ORDERED: SODIUM CHLORIDE 0.9% 1,000ML IVBOLUS ONE ×2 (15:00→16:00)
[2019-11-23] MEDS ORDERED: THIAMINE 100 MG/ML, 2ML IM ONE (15:00)
[2019-11-23] MEDS ORDERED: FAMOTIDINE 20 MG/2 ML IVPush ONE (15:00)
[2019-11-23] MEDS ORDERED: SODIUM CHLORIDE FLUSH 10ML SYR IVF ONE (15:00)
--- NOTE | 2019-11-23 15:00 | NUR ---
BEDSIDE REPORT FROM GONZALO ARANDA.
--- NOTE | 2019-11-23 15:12 | NUR ---
UNABLE TO LEAVE URINE SAMPLE AT THIS TIME.
[2019-11-23 15:19] LABS: ALBUMIN 2.5 g/dL (3.4-5.0); ANION GAP 15 mmol/L (5-15); CHLORIDE 89 mmol/L (98-107)
[2019-11-23 15:28] LABS: INTERNATIONAL NORMALIZED RATIO 1.58 (0.93-1.1); PROTHROMBIN TIME 16.4 Seconds (9.6-11.5)
[2019-11-23 15:34] LABS: ALANINE AMINOTRANSFERASE 68 U/L (12-78); ALKALINE PHOSPHATASE 350 U/L (45-117); BILIRUBIN,TOTAL 8.6 mg/dL (0.2-1.0); CREATININE 0.69 mg/dL (0.7-1.3); TOTAL PROTEIN 6.8 g/dL (6.4-8.2)
[2019-11-23 15:37] LABS: BASOPHILS # (AUTO) 0.04 x10^3/uL (0-0.1); BASOPHILS % (AUTO) 0 % (0-1); EOSINOPHILS # (AUTO) 0.06 x10^3/uL (0-0.4); EOSINOPHILS % (AUTO) 0 % (1-7); LYMPHOCYTES # (AUTO) 0.83 x10^3/uL (1-3.4); LYMPHOCYTES % (AUTO) 3 % (22-44); MD MORPH REVIEW ONLY; MEAN CORPUSCULAR HEMOGLOBIN 39.7 pg (27.5-34.5); MEAN CORPUSCULAR HGB CONC 34.2 g/dL (33.2-36.2); MEAN CORPUSCULAR VOLUME 115.8 fL (81-97); MONOCYTES # (AUTO) 0.89 x10^3/uL (0.2-0.8); MONOCYTES % (AUTO) 4 % (2-9); NEUTROPHILS # (AUTO) 23.11 x10^3/uL (1.8-6.8); NEUTROPHILS % (AUTO) 93 % (42-75); PLATELET COUNT 71 x10^3/uL (130-400); RED BLOOD COUNT 2.46 x10^6/uL (4.38-5.82); RED CELL DISTRIBUTION WIDTH 19.6 % (9.4-14.8)
[2019-11-23 15:38] LABS: ANISOCYTOSIS 1+
[2019-11-23 15:39] LABS: TARGET CELLS 1+
[2019-11-23 15:40] LABS: BASOPHILLIC STIPPLING 1+; OVALOCYTES 1+
[2019-11-23 15:42] LABS: <PLATELET ESTIMATE> DECREASED; <PLT MORPHOLOGY> NORMAL PLT MORPH
--- NOTE | 2019-11-23 15:56 | NUR ---
REQUESTED NS+40K+ from pharmacy.
[2019-11-23] MEDS ORDERED: POTASSIUM CHLORIDE 40 MEQ in SODIUM CHLORIDE 0.9% 500 ML IV ONE (16:00)
--- NOTE | 2019-11-23 16:04 | NUR ---
URINE SAMPLE COLLECTED.
--- NOTE | 2019-11-23 17:09 | NUR ---
HOSPITALIST AT BEDSIDE.
--- NOTE | 2019-11-23 17:29 | NUR ---
US AT BEDSIDE.
[2019-11-23] MEDS ORDERED: ENALAPRILAT 1.25 MG/ML, 2ML IVPush PRN (18:00)
[2019-11-23] MEDS ORDERED: ONDANSETRON 2MG/ML, 2ML IVPush PRN (18:00)
[2019-11-23] MEDS ORDERED: CHLORDIAZEPOXIDE 25 MG CAPSULE PO PRN ×3 (18:00)
[2019-11-23] MEDS ORDERED: THIAMINE 200 MG in DEXTROSE 5% 50 ML IVPB ONE (18:00)
[2019-11-23] MEDS ORDERED: LORazepam 2 MG/ML, 1ML IV PRN (18:00)
[2019-11-23 18:07] LABS: MICROSCOPIC INDICATED
[2019-11-23] MEDS ORDERED: LORazepam 1MG TABLET PO PRN (18:30)
[2019-11-23] MEDS ORDERED: ENOXAPARIN 40 MG/0.4 ML ONE (19:15)
[2019-11-23] MEDS: ENOXAPARIN 40 MG/0.4 ML SQ SCH (19:36)
[2019-11-23] MEDS: D5%-0.45NACL+KCL 20MEQ 1,000 ML IV SCH (20:01)
[2019-11-23] MEDS: FAMOTIDINE 20 MG/2 ML IVPush SCH (21:00)
[2019-11-23] MEDS: ONDANSETRON ODT 4 MG PO PRN (22:34)
[2019-11-23] MEDS: FAMOTIDINE 20 MG TABLET PO SCH (22:34)
[2019-11-23] MEDS: POTASSIUM CHLORIDE 20 MEQ TAB.ER.PRT PO SCH (22:34)
[2019-11-23 23:41] VITALS: BP 118/78
[2019-11-24 02:50] VITALS: BP 114/73
[2019-11-24] MEDS: ACETAMINOPHEN 325 MG TABLET PO PRN ×2 (04:04→11:33)
[2019-11-24] MEDS: D5%-0.45NACL+KCL 20MEQ 1,000 ML IV SCH ×2 (06:08→16:02)
[2019-11-24 06:09] LABS: CHLORIDE 98 mmol/L (98-107); MEAN CORPUSCULAR HEMOGLOBIN 39.6 pg (27.5-34.5); MEAN CORPUSCULAR HGB CONC 34.4 g/dL (33.2-36.2); MEAN CORPUSCULAR VOLUME 115.1 fL (81-97); RED BLOOD COUNT 2.29 x10^6/uL (4.38-5.82); RED CELL DISTRIBUTION WIDTH 20.4 % (9.4-14.8)
[2019-11-24 06:16] LABS: ALANINE AMINOTRANSFERASE 61 U/L (12-78); ALBUMIN 2.2 g/dL (3.4-5.0); ALKALINE PHOSPHATASE 331 U/L (45-117); ANION GAP 8 mmol/L (5-15); BILIRUBIN,TOTAL 10.6 mg/dL (0.2-1.0); CALCIUM 7.9 mg/dL (8.5-10.1); CREATININE 0.53 mg/dL (0.7-1.3); TOTAL PROTEIN 6.4 g/dL (6.4-8.2)
[2019-11-24] MEDS: ONDANSETRON ODT 4 MG PO PRN (06:17)
[2019-11-24 06:32] LABS: MD YES; MEAN PLATELET VOLUME 9.4 fL (7.4-10.4); PLATELET COUNT 61 x10^3/uL (130-400)
[2019-11-24 06:34] LABS: BAND#(MANUAL) 1.99 x10^3/uL; BANDS%(MANUAL) 8 % (0-7); EOS#(MANUAL) 0.25 x10^3/uL (0.0-0.4); EOS% (MANUAL) 1 % (1-7); LYMPHS% (MANUAL) 4 % (22-44); MONOS% (MANUAL) 4 % (2-9); NRBC % (MANUAL) 2 % (0-1); SEG#(MANUAL) 20.67 x10^3/uL (1.8-6.8); SEGS% (MANUAL) 83 % (42-75)
[2019-11-24 06:35] LABS: ANISOCYTOSIS 1+; OVALOCYTES 1+; TARGET CELLS 1+
[2019-11-24 06:36] LABS: <PLATELET ESTIMATE> DECREASED; <PLT MORPHOLOGY> NORMAL PLT MORPH
[2019-11-24] MEDS: CHLORDIAZEPOXIDE 10 MG CAPSULE PO PRN (06:37)
[2019-11-24 06:45] VITALS: BP 119/81
[2019-11-24] MEDS: FAMOTIDINE 20 MG/2 ML IVPush SCH (07:48)
[2019-11-24] MEDS ORDERED: MAGNESIUM SULFATE PMX 4GM/100M 100 ML IV ONE (08:30)
[2019-11-24] MEDS: POTASSIUM CHLORIDE 20 MEQ TAB.ER.PRT PO SCH ×2 (08:35→20:46)
[2019-11-24] MEDS: MULTIVITAMINS/MINERALS TABLET PO SCH (08:35)
[2019-11-24] MEDS: FAMOTIDINE 20 MG TABLET PO SCH ×2 (08:35→20:45)
[2019-11-24] MEDS: THIAMINE 100MG TABLET PO SCH (11:34)
[2019-11-24] MEDS ORDERED: THIAMINE 100 MG in DEXTROSE 5% 50 ML IVPB SCH (12:00)
[2019-11-24 12:57] VITALS: BP 113/80
[2019-11-24] MEDS: ENOXAPARIN 40 MG/0.4 ML SQ SCH (17:12)
[2019-11-24 21:50] VITALS: BP 114/80
[2019-11-25] MEDS: D5%-0.45NACL+KCL 20MEQ 1,000 ML IV SCH ×3 (00:24→17:09)
[2019-11-25 01:58] VITALS: BP 113/77
[2019-11-25 07:03] VITALS: BP 120/86
[2019-11-25] MEDS: POTASSIUM CHLORIDE 20 MEQ TAB.ER.PRT PO SCH (08:39)
[2019-11-25] MEDS: FAMOTIDINE 20 MG TABLET PO SCH ×2 (08:39→22:16)
[2019-11-25] MEDS: MULTIVITAMINS/MINERALS TABLET PO SCH (08:39)
[2019-11-25 11:58] LABS: MEAN CORPUSCULAR HEMOGLOBIN 39.4 pg (27.5-34.5); MEAN CORPUSCULAR HGB CONC 33.8 g/dL (33.2-36.2); MEAN CORPUSCULAR VOLUME 116.5 fL (81-97); MEAN PLATELET VOLUME 10.9 fL (7.4-10.4); PLATELET COUNT 86 x10^3/uL (130-400); RED BLOOD COUNT 2.41 x10^6/uL (4.38-5.82); RED CELL DISTRIBUTION WIDTH 21.2 % (9.4-14.8)
[2019-11-25 12:05] LABS: ANION GAP 7 mmol/L (5-15); CALCIUM 8.3 mg/dL (8.5-10.1); CHLORIDE 102 mmol/L (98-107); CREATININE 0.68 mg/dL (0.7-1.3)
[2019-11-25] MEDS: THIAMINE 100MG TABLET PO SCH (12:07)
[2019-11-25 12:35] LABS: MD YES
[2019-11-25 12:36] LABS: BAND#(MANUAL) 0.54 x10^3/uL; BANDS%(MANUAL) 2 % (0-7); EOS#(MANUAL) 1.08 x10^3/uL (0.0-0.4); EOS% (MANUAL) 4 % (1-7); LYMPH#(MANUAL) 1.62 x10^3/uL (1-3.4); LYMPHS% (MANUAL) 6 % (22-44); MONOS#(MANUAL) 1.62 x10^3/uL (0.3-2.7); MONOS% (MANUAL) 6 % (2-9); NRBC % (MANUAL) 1 % (0-1); SEG#(MANUAL) 22.14 x10^3/uL (1.8-6.8); SEGS% (MANUAL) 82 % (42-75)
[2019-11-25 12:37] LABS: ANISOCYTOSIS 1+; TARGET CELLS 1+; TOXIC GRAN 1+
[2019-11-25 12:38] LABS: <PLATELET ESTIMATE> DECREASED; LARGE PLATELETS 1+
[2019-11-25 12:47] VITALS: BP 112/79
[2019-11-25 15:55] LABS: MICROSCOPIC INDICATED
[2019-11-25] MEDS: CEFTRIAXONE PMX 1GM/50ML 50 ML IV SCH (17:10)
[2019-11-25] MEDS ORDERED: OMNIPAQUE 350 MG/ML, 100ML BOTTLE ONE (17:10)
[2019-11-25] MEDS: ENOXAPARIN 40 MG/0.4 ML SQ SCH (17:10)
[2019-11-25 19:33] VITALS: BP 124/83
[2019-11-26 00:28] VITALS: BP 111/78
[2019-11-26] MEDS: D5%-0.45NACL+KCL 20MEQ 1,000 ML IV SCH ×3 (01:02→16:11)
[2019-11-26] MEDS: CHLORDIAZEPOXIDE 10 MG CAPSULE PO PRN (01:10)
[2019-11-26 06:37] LABS: ANION GAP 5 mmol/L (5-15); CALCIUM 8.2 mg/dL (8.5-10.1); CHLORIDE 107 mmol/L (98-107); MEAN CORPUSCULAR HEMOGLOBIN 39.7 pg (27.5-34.5); MEAN CORPUSCULAR HGB CONC 33.6 g/dL (33.2-36.2); MEAN CORPUSCULAR VOLUME 118.2 fL (81-97); MEAN PLATELET VOLUME 11.2 fL (7.4-10.4); PLATELET COUNT 95 x10^3/uL (130-400); RED BLOOD COUNT 2.25 x10^6/uL (4.38-5.82); RED CELL DISTRIBUTION WIDTH 20.4 % (9.4-14.8)
[2019-11-26 06:38] LABS: CREATININE 0.52 mg/dL (0.7-1.3)
[2019-11-26 07:13] VITALS: BP 108/67
[2019-11-26 07:34] LABS: BAND#(MANUAL) 2.37 x10^3/uL; BANDS%(MANUAL) 9 % (0-7); BASOS#(MANUAL) 0.26 x10^3/uL (0-0.1); BASOS% (MANUAL) 1 % (0-1); EOS#(MANUAL) 0.53 x10^3/uL (0.0-0.4); EOS% (MANUAL) 2 % (1-7); LYMPH#(MANUAL) 2.63 x10^3/uL (1-3.4); LYMPHS% (MANUAL) 10 % (22-44); MD YES; MONOS#(MANUAL) 2.63 x10^3/uL (0.3-2.7); MONOS% (MANUAL) 10 % (2-9); SEG#(MANUAL) 17.62 x10^3/uL (1.8-6.8); SEGS% (MANUAL) 67 % (42-75)
[2019-11-26 07:35] LABS: MYELOCYTES# (MANUAL) 0.26 x10^3/uL (0-0); MYELOCYTES% (MANUAL) 1 % (0-0); NRBC % (MANUAL) 3 % (0-1); TOXIC GRAN 2+
[2019-11-26 07:36] LABS: ANISOCYTOSIS 1+; TARGET CELLS 1+
[2019-11-26 07:37] LABS: <PLATELET ESTIMATE> DECREASED; LARGE PLATELETS 1+
[2019-11-26] MEDS: FAMOTIDINE 20 MG TABLET PO SCH ×2 (08:49→22:46)
[2019-11-26] MEDS: MULTIVITAMINS/MINERALS TABLET PO SCH (08:49)
[2019-11-26] MEDS: METRONIDAZOLE PMX 500MG/100ML 100 ML IV SCH ×2 (10:17→16:31)
[2019-11-26] MEDS: THIAMINE 100MG TABLET PO SCH (11:09)
[2019-11-26] MEDS: LACTULOSE 10 GM/15 ML UDC PO SCH ×2 (11:09→22:46)
[2019-11-26 12:26] VITALS: BP 115/80
[2019-11-26] MEDS: CEFTRIAXONE PMX 1GM/50ML 50 ML IV SCH (16:12)
[2019-11-26] MEDS: ENOXAPARIN 40 MG/0.4 ML SQ SCH (16:31)
[2019-11-26 18:10] VITALS: BP 112/64
[2019-11-27 01:06] VITALS: BP 114/76
[2019-11-27] MEDS: METRONIDAZOLE PMX 500MG/100ML 100 ML IV SCH ×3 (01:13→17:36)
[2019-11-27] MEDS: D5%-0.45NACL+KCL 20MEQ 1,000 ML IV SCH ×2 (02:12→12:10)
[2019-11-27 04:53] LABS: MEAN CORPUSCULAR HEMOGLOBIN 39.9 pg (27.5-34.5); MEAN CORPUSCULAR HGB CONC 33.8 g/dL (33.2-36.2); MEAN CORPUSCULAR VOLUME 117.9 fL (81-97); MEAN PLATELET VOLUME 9.7 fL (7.4-10.4); PLATELET COUNT 131 x10^3/uL (130-400); RED BLOOD COUNT 2.19 x10^6/uL (4.38-5.82)
[2019-11-27 05:01] LABS: ANION GAP 4 mmol/L (5-15); CALCIUM 7.9 mg/dL (8.5-10.1); CHLORIDE 108 mmol/L (98-107)
[2019-11-27 05:02] LABS: CREATININE 0.57 mg/dL (0.7-1.3)
[2019-11-27 06:01] LABS: MD YES
[2019-11-27 06:03] LABS: ANISOCYTOSIS 1+; BAND#(MANUAL) 0.26 x10^3/uL; BANDS%(MANUAL) 1 % (0-7); EOS#(MANUAL) 1.28 x10^3/uL (0.0-0.4); EOS% (MANUAL) 5 % (1-7); LYMPH#(MANUAL) 3.33 x10^3/uL (1-3.4); LYMPHS% (MANUAL) 13 % (22-44); METAMYELOCYTES# (MANUAL) 0.77 x10^3/uL (0-0); METAMYELOCYTES% (MANUAL) 3 % (0-1); MONOS#(MANUAL) 1.54 x10^3/uL (0.3-2.7); MONOS% (MANUAL) 6 % (2-9); MYELOCYTES# (MANUAL) 0.51 x10^3/uL (0-0); MYELOCYTES% (MANUAL) 2 % (0-0); NRBC % (MANUAL) 2 % (0-1); SEG#(MANUAL) 17.92 x10^3/uL (1.8-6.8); SEGS% (MANUAL) 70 % (42-75)
[2019-11-27 06:04] LABS: POLYCHROMASIA 1+; TARGET CELLS 1+
[2019-11-27 06:05] LABS: <PLATELET ESTIMATE> ADEQUATE; LARGE PLATELETS 1+; TOXIC GRAN 1+
[2019-11-27 07:25] VITALS: BP 104/72
[2019-11-27] MEDS: LACTULOSE 10 GM/15 ML UDC PO SCH ×2 (10:22→20:27)
[2019-11-27] MEDS: FAMOTIDINE 20 MG TABLET PO SCH ×2 (10:22→20:27)
[2019-11-27] MEDS: MULTIVITAMINS/MINERALS TABLET PO SCH (10:22)
[2019-11-27] MEDS: THIAMINE 100MG TABLET PO SCH (10:22)
[2019-11-27] MEDS ORDERED: CHLORPROMAZINE 100MG TAB PO SCH (11:30)
[2019-11-27 13:45] VITALS: BP 111/69
[2019-11-27] MEDS: CHLORDIAZEPOXIDE 10 MG CAPSULE PO PRN (14:20)
[2019-11-27] MEDS: CEFTRIAXONE PMX 1GM/50ML 50 ML IV SCH (16:46)
[2019-11-27] MEDS: ENOXAPARIN 40 MG/0.4 ML SQ SCH (17:37)
[2019-11-27] MEDS ORDERED: FUROSEMIDE 40 MG/4 ML IV ONE (19:30)
[2019-11-27 20:18] VITALS: BP 112/80
[2019-11-28 00:17] VITALS: BP 107/76
[2019-11-28] MEDS: METRONIDAZOLE PMX 500MG/100ML 100 ML IV SCH ×2 (01:37→09:21)
[2019-11-28 05:00] LABS: MEAN CORPUSCULAR HEMOGLOBIN 39.2 pg (27.5-34.5); MEAN CORPUSCULAR VOLUME 122.4 fL (81-97); MEAN PLATELET VOLUME 8.9 fL (7.4-10.4); PLATELET COUNT 166 x10^3/uL (130-400); RED BLOOD COUNT 2.32 x10^6/uL (4.38-5.82); RED CELL DISTRIBUTION WIDTH 23.1 % (9.4-14.8)
[2019-11-28 05:01] LABS: ALANINE AMINOTRANSFERASE 37 U/L (12-78); ALBUMIN 1.9 g/dL (3.4-5.0); ANION GAP 7 mmol/L (5-15); CALCIUM 8.2 mg/dL (8.5-10.1); CHLORIDE 105 mmol/L (98-107); CREATININE 0.68 mg/dL (0.7-1.3)
[2019-11-28 05:04] LABS: ALKALINE PHOSPHATASE 391 U/L (45-117); TOTAL PROTEIN 5.6 g/dL (6.4-8.2)
[2019-11-28 05:16] LABS: BILIRUBIN,TOTAL 17.5 mg/dL (0.2-1.0)
[2019-11-28 05:40] LABS: MD YES
[2019-11-28 05:41] LABS: BAND#(MANUAL) 0.57 x10^3/uL; BANDS%(MANUAL) 2 % (0-7); EOS#(MANUAL) 0.85 x10^3/uL (0.0-0.4); EOS% (MANUAL) 3 % (1-7); LYMPH#(MANUAL) 1.99 x10^3/uL (1-3.4); LYMPHS% (MANUAL) 7 % (22-44); MONOS#(MANUAL) 3.41 x10^3/uL (0.3-2.7); MONOS% (MANUAL) 12 % (2-9); MYELOCYTES# (MANUAL) 0.85 x10^3/uL (0-0); MYELOCYTES% (MANUAL) 3 % (0-0); NRBC % (MANUAL) 1 % (0-1); SEG#(MANUAL) 20.73 x10^3/uL (1.8-6.8); SEGS% (MANUAL) 73 % (42-75)
[2019-11-28 05:42] LABS: ANISOCYTOSIS 1+; POLYCHROMASIA 1+; TARGET CELLS 1+
[2019-11-28 05:43] LABS: <PLATELET ESTIMATE> ADEQUATE; TOXIC GRAN 1+
[2019-11-28 05:44] LABS: LARGE PLATELETS 1+
[2019-11-28 07:07] VITALS: BP 104/63
[2019-11-28] MEDS: LACTULOSE 10 GM/15 ML UDC PO SCH ×2 (09:20→20:37)
[2019-11-28] MEDS: FAMOTIDINE 20 MG TABLET PO SCH ×2 (09:21→20:37)
[2019-11-28] MEDS: MULTIVITAMINS/MINERALS TABLET PO SCH (09:21)
[2019-11-28] MEDS: THIAMINE 100MG TABLET PO SCH (12:10)
[2019-11-28 13:50] VITALS: BP 93/61
[2019-11-28 14:28] LABS: INTERNATIONAL NORMALIZED RATIO 2.7 (0.93-1.1); PROTHROMBIN TIME 28.1 Seconds (9.6-11.5)
[2019-11-28] MEDS ORDERED: AMPICILLIN/SULBACTAM 1,500 MG in SODIUM CHLORIDE 0.9% 50 ML IV SCH (15:00)
[2019-11-28] MEDS: ENOXAPARIN 40 MG/0.4 ML SQ SCH (18:00)
[2019-11-28 20:50] VITALS: BP 96/65
[2019-11-28] MEDS: AMPICILLIN/SULBACTAM 1,500 MG in SODIUM CHLORIDE 0.9% 100 ML IV SCH (22:05)
[2019-11-29 00:49] VITALS: BP 102/69
[2019-11-29] MEDS: AMPICILLIN/SULBACTAM 1,500 MG in SODIUM CHLORIDE 0.9% 100 ML IV SCH ×4 (04:19→21:33)
[2019-11-29 05:11] LABS: MEAN CORPUSCULAR HEMOGLOBIN 39.7 pg (27.5-34.5); MEAN CORPUSCULAR HGB CONC 32.9 g/dL (33.2-36.2); MEAN CORPUSCULAR VOLUME 120.7 fL (81-97); MEAN PLATELET VOLUME 9.2 fL (7.4-10.4); PLATELET COUNT 175 x10^3/uL (130-400); RED BLOOD COUNT 2.18 x10^6/uL (4.38-5.82)
[2019-11-29 05:16] LABS: ALANINE AMINOTRANSFERASE 33 U/L (12-78); ALBUMIN 1.7 g/dL (3.4-5.0); ANION GAP 7 mmol/L (5-15); CALCIUM 8.1 mg/dL (8.5-10.1); CHLORIDE 105 mmol/L (98-107)
[2019-11-29 05:19] LABS: ALKALINE PHOSPHATASE 389 U/L (45-117); CREATININE 0.68 mg/dL (0.7-1.3); TOTAL PROTEIN 5.3 g/dL (6.4-8.2)
[2019-11-29 05:22] LABS: BILIRUBIN,TOTAL 16.6 mg/dL (0.2-1.0)
[2019-11-29 05:39] LABS: MD YES
[2019-11-29 05:42] LABS: ANISOCYTOSIS 1+; BAND#(MANUAL) 1.12 x10^3/uL; BANDS%(MANUAL) 5 % (0-7); EOS#(MANUAL) 0.22 x10^3/uL (0.0-0.4); EOS% (MANUAL) 1 % (1-7); LYMPH#(MANUAL) 3.14 x10^3/uL (1-3.4); LYMPHS% (MANUAL) 14 % (22-44); METAMYELOCYTES# (MANUAL) 0.22 x10^3/uL (0-0); METAMYELOCYTES% (MANUAL) 1 % (0-1); MONOS#(MANUAL) 2.69 x10^3/uL (0.3-2.7); MONOS% (MANUAL) 12 % (2-9); MYELOCYTES# (MANUAL) 0.67 x10^3/uL (0-0); MYELOCYTES% (MANUAL) 3 % (0-0); POLYCHROMASIA 1+; SEG#(MANUAL) 14.34 x10^3/uL (1.8-6.8); SEGS% (MANUAL) 64 % (42-75); TARGET CELLS 1+
[2019-11-29 05:43] LABS: <PLATELET ESTIMATE> ADEQUATE; <PLT MORPHOLOGY> NORMAL PLT MORPH; TOXIC GRAN 1+
[2019-11-29 07:27] VITALS: BP 107/69
[2019-11-29] MEDS: LACTULOSE 10 GM/15 ML UDC PO SCH ×2 (10:14→21:24)
[2019-11-29] MEDS: MULTIVITAMINS/MINERALS TABLET PO SCH (10:19)
[2019-11-29] MEDS: FAMOTIDINE 20 MG TABLET PO SCH ×2 (10:25→21:33)
[2019-11-29] MEDS: THIAMINE 100MG TABLET PO SCH (12:45)
[2019-11-29 13:58] VITALS: BP 104/72
[2019-11-29] MEDS: ENOXAPARIN 40 MG/0.4 ML SQ SCH (18:12)
[2019-11-29 19:07] VITALS: BP 101/66
[2019-11-30 00:38] VITALS: BP 105/68
[2019-11-30] MEDS: AMPICILLIN/SULBACTAM 1,500 MG in SODIUM CHLORIDE 0.9% 100 ML IV SCH ×4 (04:07→23:48)
[2019-11-30 05:08] LABS: ALBUMIN 1.7 g/dL (3.4-5.0); ANION GAP 5 mmol/L (5-15); CALCIUM 7.6 mg/dL (8.5-10.1); CHLORIDE 106 mmol/L (98-107)
[2019-11-30 05:11] LABS: ALANINE AMINOTRANSFERASE 28 U/L (12-78); ALKALINE PHOSPHATASE 412 U/L (45-117); CREATININE 0.66 mg/dL (0.7-1.3); MEAN CORPUSCULAR HEMOGLOBIN 38.6 pg (27.5-34.5); MEAN CORPUSCULAR HGB CONC 31.6 g/dL (33.2-36.2); MEAN PLATELET VOLUME 8.9 fL (7.4-10.4); PLATELET COUNT 229 x10^3/uL (130-400); RED BLOOD COUNT 2.35 x10^6/uL (4.38-5.82); RED CELL DISTRIBUTION WIDTH 23.6 % (9.4-14.8); TOTAL PROTEIN 5.3 g/dL (6.4-8.2)
[2019-11-30 05:12] LABS: BILIRUBIN,TOTAL 15.3 mg/dL (0.2-1.0)
[2019-11-30 06:32] LABS: MD YES
[2019-11-30 06:34] LABS: <PLATELET ESTIMATE> ADEQUATE; ANISOCYTOSIS 1+; BAND#(MANUAL) 1.16 x10^3/uL; BANDS%(MANUAL) 4 % (0-7); EOS#(MANUAL) 0.87 x10^3/uL (0.0-0.4); EOS% (MANUAL) 3 % (1-7); LARGE PLATELETS 1+; LYMPH#(MANUAL) 3.78 x10^3/uL (1-3.4); LYMPHS% (MANUAL) 13 % (22-44); METAMYELOCYTES# (MANUAL) 0.58 x10^3/uL (0-0); METAMYELOCYTES% (MANUAL) 2 % (0-1); MONOS% (MANUAL) 11 % (2-9); MYELOCYTES# (MANUAL) 0.87 x10^3/uL (0-0); MYELOCYTES% (MANUAL) 3 % (0-0); NRBC % (MANUAL) 1 % (0-1); POLYCHROMASIA 1+; SEG#(MANUAL) 18.62 x10^3/uL (1.8-6.8); SEGS% (MANUAL) 64 % (42-75); TOXIC GRAN 1+
[2019-11-30 06:54] VITALS: BP 109/74
[2019-11-30] MEDS: LACTULOSE 10 GM/15 ML UDC PO SCH ×3 (09:00→20:48)
[2019-11-30] MEDS: MULTIVITAMINS/MINERALS TABLET PO SCH (09:30)
[2019-11-30] MEDS: FAMOTIDINE 20 MG TABLET PO SCH ×2 (09:30→20:48)
[2019-11-30] MEDS: PENTOXIFYLLINE 400 MG TABLET.ER PO SCH ×3 (10:00→23:48)
[2019-11-30 12:40] VITALS: BP 115/75
[2019-11-30] MEDS: THIAMINE 100MG TABLET PO SCH (12:47)
[2019-11-30] MEDS: morphine SULFATE 10 MG/ML, 1ML IVPush PRN (14:19)
[2019-11-30] MEDS: ENOXAPARIN 40 MG/0.4 ML SQ SCH (18:10)
[2019-11-30 19:26] VITALS: BP 109/71
[2019-11-30] MEDS: TEMAZEPAM 15 MG CAPSULE PO PRN (23:48)
[2019-12-01 00:20] VITALS: BP 103/65
[2019-12-01] MEDS: AMPICILLIN/SULBACTAM 1,500 MG in SODIUM CHLORIDE 0.9% 50 ML IV SCH ×3 (06:01→18:08)
[2019-12-01 06:10] LABS: MEAN CORPUSCULAR HEMOGLOBIN 39.3 pg (27.5-34.5); MEAN CORPUSCULAR HGB CONC 32.7 g/dL (33.2-36.2); MEAN CORPUSCULAR VOLUME 120.2 fL (81-97); PLATELET COUNT 240 x10^3/uL (130-400); RED BLOOD COUNT 2.44 x10^6/uL (4.38-5.82); RED CELL DISTRIBUTION WIDTH 22.5 % (9.4-14.8)
[2019-12-01 06:16] LABS: ALANINE AMINOTRANSFERASE 30 U/L (12-78); ALBUMIN 1.6 g/dL (3.4-5.0); ANION GAP 7 mmol/L (5-15); CALCIUM 7.7 mg/dL (8.5-10.1); CHLORIDE 106 mmol/L (98-107)
[2019-12-01 06:18] LABS: ALKALINE PHOSPHATASE 446 U/L (45-117); CREATININE 0.74 mg/dL (0.7-1.3); TOTAL PROTEIN 5.5 g/dL (6.4-8.2)
[2019-12-01 06:26] LABS: BILIRUBIN,TOTAL 15.2 mg/dL (0.2-1.0); MD YES
[2019-12-01 06:27] LABS: BANDS%(MANUAL) 12 % (0-7); LYMPH#(MANUAL) 2.35 x10^3/uL (1-3.4); LYMPHS% (MANUAL) 6 % (22-44); METAMYELOCYTES# (MANUAL) 0.39 x10^3/uL (0-0); METAMYELOCYTES% (MANUAL) 1 % (0-1); MONOS#(MANUAL) 3.14 x10^3/uL (0.3-2.7); MONOS% (MANUAL) 8 % (2-9); MYELOCYTES# (MANUAL) 0.78 x10^3/uL (0-0); MYELOCYTES% (MANUAL) 2 % (0-0); SEG#(MANUAL) 27.83 x10^3/uL (1.8-6.8); SEGS% (MANUAL) 71 % (42-75)
[2019-12-01 06:28] LABS: <PLATELET ESTIMATE> ADEQUATE; <PLT MORPHOLOGY> NORMAL PLT MORPH; ANISOCYTOSIS 1+; POLYCHROMASIA 1+; TARGET CELLS 1+; TOXIC GRAN 1+
[2019-12-01 06:30] VITALS: BP 110/73
[2019-12-01] MEDS: MULTIVITAMINS/MINERALS TABLET PO SCH (08:44)
[2019-12-01] MEDS: PENTOXIFYLLINE 400 MG TABLET.ER PO SCH ×3 (08:44→21:12)
[2019-12-01] MEDS: LACTULOSE 10 GM/15 ML UDC PO SCH ×2 (08:44→21:00)
[2019-12-01] MEDS: FAMOTIDINE 20 MG TABLET PO SCH ×2 (08:44→21:12)
[2019-12-01] MEDS: THIAMINE 100MG TABLET PO SCH (13:04)
[2019-12-01 13:52] VITALS: BP 111/75
[2019-12-01] MEDS: morphine SULFATE 10 MG/ML, 1ML IVPush PRN (14:17)
[2019-12-01] MEDS: ENOXAPARIN 40 MG/0.4 ML SQ SCH (18:08)
[2019-12-01 18:42] VITALS: BP 103/70
[2019-12-01] MEDS: TEMAZEPAM 15 MG CAPSULE PO PRN (21:20)
[2019-12-02] MEDS: AMPICILLIN/SULBACTAM 1,500 MG in SODIUM CHLORIDE 0.9% 50 ML IV SCH ×4 (00:32→17:56)
[2019-12-02 00:53] VITALS: BP 105/70
[2019-12-02 05:48] LABS: ALANINE AMINOTRANSFERASE 29 U/L (12-78); ALBUMIN 1.5 g/dL (3.4-5.0); ANION GAP 7 mmol/L (5-15); CALCIUM 7.5 mg/dL (8.5-10.1); CHLORIDE 105 mmol/L (98-107)
[2019-12-02 05:51] LABS: ALKALINE PHOSPHATASE 425 U/L (45-117); BILIRUBIN,TOTAL 14.5 mg/dL (0.2-1.0); CREATININE 0.58 mg/dL (0.7-1.3); TOTAL PROTEIN 5.3 g/dL (6.4-8.2)
[2019-12-02 06:11] LABS: MEAN CORPUSCULAR HEMOGLOBIN 39.3 pg (27.5-34.5); MEAN CORPUSCULAR VOLUME 119.4 fL (81-97); MEAN PLATELET VOLUME 9.3 fL (7.4-10.4); PLATELET COUNT 208 x10^3/uL (130-400); RED BLOOD COUNT 2.34 x10^6/uL (4.38-5.82)
[2019-12-02 06:32] LABS: MD YES
[2019-12-02 06:34] LABS: <PLATELET ESTIMATE> ADEQUATE; <PLT MORPHOLOGY> NORMAL PLT MORPH; ANISOCYTOSIS 1+; BAND#(MANUAL) 2.16 x10^3/uL; BANDS%(MANUAL) 6 % (0-7); BASOS#(MANUAL) 0.36 x10^3/uL (0-0.1); BASOS% (MANUAL) 1 % (0-1); EOS% (MANUAL) 5 % (1-7); LYMPH#(MANUAL) 0.72 x10^3/uL (1-3.4); LYMPHS% (MANUAL) 2 % (22-44); METAMYELOCYTES# (MANUAL) 1.08 x10^3/uL (0-0); METAMYELOCYTES% (MANUAL) 3 % (0-1); MONOS% (MANUAL) 5 % (2-9); MYELOCYTES# (MANUAL) 0.36 x10^3/uL (0-0); MYELOCYTES% (MANUAL) 1 % (0-0); POLYCHROMASIA 1+; SEG#(MANUAL) 27.72 x10^3/uL (1.8-6.8); SEGS% (MANUAL) 77 % (42-75); TARGET CELLS 1+; TOXIC GRAN 1+
[2019-12-02 07:19] VITALS: BP 108/72
[2019-12-02] MEDS: MULTIVITAMINS/MINERALS TABLET PO SCH (08:39)
[2019-12-02] MEDS: PENTOXIFYLLINE 400 MG TABLET.ER PO SCH ×3 (08:39→20:47)
[2019-12-02] MEDS: FUROSEMIDE 40 MG TABLET PO SCH (08:39)
[2019-12-02] MEDS: SPIRONOLACTONE 100 MG TABLET PO SCH (08:39)
[2019-12-02] MEDS: FAMOTIDINE 20 MG TABLET PO SCH ×2 (08:39→20:47)
[2019-12-02] MEDS: LACTULOSE 10 GM/15 ML UDC PO SCH ×2 (08:40→21:00)
[2019-12-02] MEDS: THIAMINE 100MG TABLET PO SCH (12:00)
[2019-12-02 13:41] VITALS: BP 110/74
[2019-12-02] MEDS: morphine SULFATE 10 MG/ML, 1ML IVPush PRN ×2 (14:16→21:52)
[2019-12-02] MEDS: ENOXAPARIN 40 MG/0.4 ML SQ SCH (17:48)
[2019-12-02 18:46] VITALS: BP 104/71
[2019-12-02] MEDS: TEMAZEPAM 15 MG CAPSULE PO PRN (20:47)
[2019-12-03 00:28] VITALS: BP 101/70
[2019-12-03 06:06] LABS: ALBUMIN 1.5 g/dL (3.4-5.0); ANION GAP 6 mmol/L (5-15); CALCIUM 7.8 mg/dL (8.5-10.1); CHLORIDE 104 mmol/L (98-107)
[2019-12-03 06:10] LABS: ALANINE AMINOTRANSFERASE 33 U/L (12-78); ALKALINE PHOSPHATASE 457 U/L (45-117); BILIRUBIN,TOTAL 14.8 mg/dL (0.2-1.0); CREATININE 0.63 mg/dL (0.7-1.3); TOTAL PROTEIN 5.8 g/dL (6.4-8.2)
[2019-12-03 07:31] VITALS: BP 102/69
[2019-12-03] MEDS: FUROSEMIDE 40 MG TABLET PO SCH (08:41)
[2019-12-03] MEDS: SPIRONOLACTONE 100 MG TABLET PO SCH (08:41)
[2019-12-03] MEDS: PENTOXIFYLLINE 400 MG TABLET.ER PO SCH ×3 (08:42→21:32)
[2019-12-03] MEDS: LACTULOSE 10 GM/15 ML UDC PO SCH ×2 (08:42→21:00)
[2019-12-03] MEDS: MULTIVITAMINS/MINERALS TABLET PO SCH (08:42)
[2019-12-03] MEDS: FAMOTIDINE 20 MG TABLET PO SCH ×2 (08:42→21:32)
[2019-12-03] MEDS: THIAMINE 100MG TABLET PO SCH (12:11)
[2019-12-03 13:02] VITALS: BP 105/74
[2019-12-03] MEDS: morphine SULFATE 10 MG/ML, 1ML IVPush PRN (14:46)
[2019-12-03] MEDS: ENOXAPARIN 40 MG/0.4 ML SQ SCH (18:01)
[2019-12-03 20:54] VITALS: BP 102/73
[2019-12-03] MEDS: TEMAZEPAM 15 MG CAPSULE PO PRN (21:32)
[2019-12-04 01:16] VITALS: BP 101/69
[2019-12-04] MEDS: morphine SULFATE 10 MG/ML, 1ML IVPush PRN (01:19)
[2019-12-04 06:53] VITALS: BP 101/66
[2019-12-04 07:05] LABS: CHLORIDE 104 mmol/L (98-107)
[2019-12-04 07:12] LABS: ALANINE AMINOTRANSFERASE 39 U/L (12-78); ALBUMIN 1.6 g/dL (3.4-5.0); ALKALINE PHOSPHATASE 448 U/L (45-117); ANION GAP 8 mmol/L (5-15); BILIRUBIN,TOTAL 14.1 mg/dL (0.2-1.0); CALCIUM 7.7 mg/dL (8.5-10.1); CREATININE 0.56 mg/dL (0.7-1.3); TOTAL PROTEIN 5.7 g/dL (6.4-8.2)
[2019-12-04] MEDS: PENTOXIFYLLINE 400 MG TABLET.ER PO SCH (09:04)
[2019-12-04] MEDS: FUROSEMIDE 40 MG TABLET PO SCH (09:04)
[2019-12-04] MEDS: MULTIVITAMINS/MINERALS TABLET PO SCH (09:04)
[2019-12-04] MEDS: FAMOTIDINE 20 MG TABLET PO SCH (09:04)
[2019-12-04] MEDS: LACTULOSE 10 GM/15 ML UDC PO SCH (09:04)
[2019-12-04] MEDS: SPIRONOLACTONE 100 MG TABLET PO SCH (09:04)
[2019-12-04] MEDS: THIAMINE 100MG TABLET PO SCH (13:32)
[2019-12-04 14:12] VITALS: BP 104/64
[2019-12-04] MEDS ORDERED: SPIR100T PO (15:37)
[2019-12-04] MEDS ORDERED: PENT400T12 PO (15:37)
[2019-12-04] MEDS ORDERED: LACT10SO24 PO (15:37)
[2019-12-04] MEDS ORDERED: THIA100T67 PO (15:37)
== END 2019-12-04 16:00 | disposition home or self-care (01) | DRG 871 ==
LOC: ED 15:58 → EDIP 17:52 → 5SO 21:04 → 3N 11-28 11:43
PROVIDERS: ADMIT Hospitalist; ATTEND Family Medicine
DX: A41.9 Sepsis, unspecified organism (principal); E43 Unspecified severe protein-calorie malnutrition; G93.41 Metabolic encephalopathy; J18.9 Pneumonia, unspecified organism; K85.20 Alcohol induced acute pancreatitis without necrosis or infection; C22.0 Liver cell carcinoma; E87.1 Hypo-osmolality and hyponatremia; K76.6 Portal hypertension; D69.6 Thrombocytopenia, unspecified; E83.42 Hypomagnesemia; E86.1 Hypovolemia; E87.6 Hypokalemia; F10.229 Alcohol dependence with intoxication, unspecified; F17.210 Nicotine dependence, cigarettes, uncomplicated; I48.0 Paroxysmal atrial fibrillation; K52.9 Noninfective gastroenteritis and colitis, unspecified; K70.11 Alcoholic hepatitis with ascites; K70.31 Alcoholic cirrhosis of liver with ascites; K31.9 Disease of stomach and duodenum, unspecified; K72.90 Hepatic failure, unspecified without coma; K76.0 Fatty (change of) liver, not elsewhere classified; R56.9 Unspecified convulsions; Z83.3 Family history of diabetes mellitus; Z68.33 Body mass index [BMI] 33.0-33.9, adult
CPT/HCPCS: 36415; J3490; 71045; 74177; 76700; 76705; 80048; 80053; 80307; 81001; 82105; 82140; 82550; 83605; 83690; 83735; 84100; 85025; 85610; 87040; 87086; 93005; 96361; 96372; 96374; 96375; 99291; G0378; J0696; J1650; J1940; J2405; J3411; J3480; Q0162; Q9967; J0295; J2270; J3475; J7030; J7040

== ENCOUNTER 2019-12-08 19:01 | Inpatient (IN) | payer MEDICAID, OTHER ==
[~2019-12-08] VITALS: Ht 177.8 cm; Wt 102.0 kg
[~2019-12-08 19:01] MED LIST changes: +LACT10SO24 PO; +PENT400T12 PO; +SPIR100T PO; +THIA100T67 PO
--- NOTE | 2019-12-08 19:24 | NUR ---
PT BIB [facility] FROM HOME FOR LOWER EXTREMTIY SWELLING. PT GIVEN 400 ML NS ENROUTE AND THEN DEVEOPED SEVERE LOWER EXTREMITY PAIN. PT IS ANOx4 BUT APPEARS SLIGHTLY CONFUSED TO THIS RN. PT SPEECH AND ANSWERS CAN BE RAMBLING AND DO NOT ALWAYS MAKE SENSE, EXAMPLE PT ASKED WEIGHT AND STATES "IM 58-21 POUNDS" THEN PT STATES I WAS "180 POUNDS". PT PULSES 2+, NAD, YELLING OUT "I NEED PAIN MEDS" AND GROAING, REPORTS 10/10 PAIN IN SCROTUM. PT ABDOMINAL REGION APPEARS ASCITIC AND SIGNIFICANTLY SWOLLEN AND FIRM. WCTM. NOAH GUTHRIE AT FOR EVAL AND POC. PT PLACED ON SPO2/BP/ECG MONITORING, VSS AT THIS TIME.
--- NOTE | 2019-12-08 19:33 | NUR ---
TP RN: RN TO CALL SISTER FOR STATUS UPDATE JENNIFER ROSAS [phone]
--- NOTE | 2019-12-08 19:49 | NUR ---
RN CALLED AND UPDATE FAMILY. PT OKAY'D RELEASE OF MEDICAL INFORMATION. PT NAD, RESTING ON GURNEY, EYES CLOSED, APPEARS MORE COMFORTABLE AT THIS TIME. WCTM. WAITING FOR LAB RESULTS.
[2019-12-08 19:56] LABS: ALANINE AMINOTRANSFERASE 47 U/L (12-78); ALBUMIN 1.3 g/dL (3.4-5.0); ANION GAP 8 mmol/L (5-15); CALCIUM 7.7 mg/dL (8.5-10.1); CHLORIDE 106 mmol/L (98-107); CREATININE 0.96 mg/dL (0.7-1.3)
[2019-12-08 19:57] LABS: ALKALINE PHOSPHATASE 412 U/L (45-117); BILIRUBIN,TOTAL 13.4 mg/dL (0.2-1.0); TOTAL PROTEIN 5.7 g/dL (6.4-8.2)
[2019-12-08 19:58] LABS: MD YES; MEAN CORPUSCULAR HGB CONC 32.9 g/dL (33.2-36.2); MEAN CORPUSCULAR VOLUME 115.5 fL (81-97); MEAN PLATELET VOLUME 10.3 fL (7.4-10.4); PLATELET COUNT 157 x10^3/uL (130-400); RED BLOOD COUNT 2.45 x10^6/uL (4.38-5.82); RED CELL DISTRIBUTION WIDTH 18.8 % (9.4-14.8)
[2019-12-08 19:59] LABS: ANISOCYTOSIS 1+; BAND#(MANUAL) 1.41 x10^3/uL; BANDS%(MANUAL) 5 % (0-7); EOS#(MANUAL) 0.56 x10^3/uL (0.0-0.4); EOS% (MANUAL) 2 % (1-7); LYMPH#(MANUAL) 2.54 x10^3/uL (1-3.4); LYMPHS% (MANUAL) 9 % (22-44); MONOS#(MANUAL) 0.28 x10^3/uL (0.3-2.7); MONOS% (MANUAL) 1 % (2-9); POLYCHROMASIA 1+; SEG#(MANUAL) 23.41 x10^3/uL (1.8-6.8); SEGS% (MANUAL) 83 % (42-75); TARGET CELLS 1+
[2019-12-08 20:00] LABS: <PLATELET ESTIMATE> ADEQUATE; <PLT MORPHOLOGY> NORMAL PLT MORPH; TOXIC GRAN 1+
--- NOTE | 2019-12-08 20:42 | NUR ---
PT RESTING ON GURNEY, NAD, APPEARS COMFORTABLE, EYES CLOSED, CALL LIGHT ON LAP, WCTM. WAITING FOR RECHECK.
--- NOTE | 2019-12-08 21:26 | NUR ---
pt resting on gurney, approximately 15 minutes ago pt was awake and yelling out in gurney while radiology was at bs, pt now asleep again, nad, vss, resting with warm blankets, lights dimmed for comfort, wctm.
[2019-12-08] MEDS ORDERED: FUROSEMIDE 40 MG/4 ML ONE (21:55)
[2019-12-08] MEDS ORDERED: FUROSEMIDE 40 MG/4 ML IV ONE (22:00)
--- NOTE | 2019-12-08 22:12 | NUR ---
PT MEDICATED PER MAR, HOSPITALIST AT BS FOR EVAL. PT NAD, VSS, CALL LIGHT ON LAP, PT RESTING QUIETLY WHEN NO ONE IS IN ROOM BUT WHEN STAFF AT BS PT BEGINS YELLING FOR PAIN MEDS. PT TO BE ADMITTED, STEPHANIE.
[2019-12-08] MEDS ORDERED: SODIUM CHLORIDE FLUSH 10ML SYR IVF PRN (22:30)
[2019-12-08] MEDS ORDERED: ONDANSETRON ODT 4 MG PO PRN (22:30)
[2019-12-08] MEDS: SODIUM CHLORIDE FLUSH 10ML SYR IVF SCH (22:30)
[2019-12-08] MEDS ORDERED: ALBUMIN HUMAN 25% 100 ML IV ONE (22:30)
[2019-12-08] MEDS ORDERED: POLYETHYLENE GLYCOL 17 GM PACKET PO PRN (22:30)
[2019-12-08] MEDS ORDERED: BISACODYL 10 MG SUPP PR PRN (22:30)
[2019-12-08] MEDS ORDERED: HEPARIN 5,000 UNITS/ML, 1ML ONE (22:53)
[2019-12-08 22:55] LABS: INTERNATIONAL NORMALIZED RATIO 1.75 (0.93-1.1); PROTHROMBIN TIME 18.1 Seconds (9.6-11.5)
[2019-12-08] MEDS: HEPARIN 5,000 UNITS/ML, 1ML SQ SCH (22:58)
--- NOTE | 2019-12-08 23:16 | NUR ---
PT MEDICATED PER VLADIMIR BAUMAN, US AT BS FOR EVAL. PT VSS. PHONE REPORT TO ANTIONETTE ARANDA. PT CARE TO BE TRANSFERRED UPON ARRIVAL TO THE FLOOR. STEPHANIE
[2019-12-09 00:19] VITALS: BP 107/75
[2019-12-09] MEDS: LACTULOSE 10 GM/15 ML UDC PO SCH ×3 (00:33→21:16)
[2019-12-09] MEDS: PENTOXIFYLLINE 400 MG TABLET.ER PO SCH ×4 (00:33→22:12)
[2019-12-09 05:16] LABS: MEAN CORPUSCULAR HEMOGLOBIN 37.2 pg (27.5-34.5); MEAN CORPUSCULAR HGB CONC 32.2 g/dL (33.2-36.2); MEAN CORPUSCULAR VOLUME 115.7 fL (81-97); MEAN PLATELET VOLUME 10.5 fL (7.4-10.4); PLATELET COUNT 153 x10^3/uL (130-400); RED BLOOD COUNT 2.54 x10^6/uL (4.38-5.82); RED CELL DISTRIBUTION WIDTH 19.1 % (9.4-14.8)
[2019-12-09 05:30] LABS: CHLORIDE 105 mmol/L (98-107)
[2019-12-09 05:37] LABS: ANION GAP 7 mmol/L (5-15); CALCIUM 7.9 mg/dL (8.5-10.1); CREATININE 0.79 mg/dL (0.7-1.3)
[2019-12-09 05:38] LABS: ALANINE AMINOTRANSFERASE 51 U/L (12-78); ALBUMIN 1.6 g/dL (3.4-5.0); ALKALINE PHOSPHATASE 413 U/L (45-117); BILIRUBIN,TOTAL 13.5 mg/dL (0.2-1.0)
[2019-12-09 06:27] LABS: MD YES
[2019-12-09 06:29] LABS: <PLATELET ESTIMATE> ADEQUATE; ANISOCYTOSIS 1+; BAND#(MANUAL) 0.51 x10^3/uL; BANDS%(MANUAL) 2 % (0-7); EOS#(MANUAL) 0.76 x10^3/uL (0.0-0.4); EOS% (MANUAL) 3 % (1-7); HYPOCHROMIA 1+; LYMPH#(MANUAL) 1.27 x10^3/uL (1-3.4); LYMPHS% (MANUAL) 5 % (22-44); MONOS#(MANUAL) 0.76 x10^3/uL (0.3-2.7); MONOS% (MANUAL) 3 % (2-9); POLYCHROMASIA 1+; SEG#(MANUAL) 22.01 x10^3/uL (1.8-6.8); SEGS% (MANUAL) 87 % (42-75); TARGET CELLS 1+
[2019-12-09 06:31] LABS: TOXIC GRAN 1+
[2019-12-09 07:21] VITALS: BP 103/65
[2019-12-09] MEDS ORDERED: FUROSEMIDE 20 MG/2 ML IV SCH (07:30)
[2019-12-09] MEDS: SENNA/DOCUSATE TABLET PO SCH (08:51)
[2019-12-09] MEDS: SPIRONOLACTONE 100 MG TABLET PO SCH (08:52)
[2019-12-09] MEDS: SODIUM CHLORIDE FLUSH 10ML SYR IVF SCH ×2 (08:52→21:00)
[2019-12-09] MEDS ORDERED: ALBUMIN HUMAN 25% 100 ML IV SCH (09:00)
[2019-12-09] MEDS: HEPARIN 5,000 UNITS/ML, 1ML SQ SCH ×3 (09:04→23:27)
[2019-12-09] MEDS ORDERED: IBUPROFEN 600 MG TABLET PO PRN (09:30)
[2019-12-09] MEDS: OXYcodone IR 5MG TABLET PO PRN ×3 (09:46→14:32)
[2019-12-09 15:12] VITALS: BP 104/65
[2019-12-09 19:38] VITALS: BP 101/62
[2019-12-09] MEDS: ALBUMIN HUMAN 25% 100 ML IV SCH (21:17)
[2019-12-09] MEDS: FUROSEMIDE 40 MG/4 ML IV SCH (23:17)
[2019-12-10 02:52] VITALS: BP 111/59
[2019-12-10] MEDS: ALBUMIN HUMAN 25% 100 ML IV SCH ×2 (05:37→15:54)
[2019-12-10 05:39] LABS: MEAN CORPUSCULAR HGB CONC 31.6 g/dL (33.2-36.2); MEAN CORPUSCULAR VOLUME 117.2 fL (81-97); MEAN PLATELET VOLUME 9.9 fL (7.4-10.4); PLATELET COUNT 153 x10^3/uL (130-400); RED BLOOD COUNT 2.57 x10^6/uL (4.38-5.82); RED CELL DISTRIBUTION WIDTH 18.5 % (9.4-14.8)
[2019-12-10 05:40] LABS: ALBUMIN 2.1 g/dL (3.4-5.0); ANION GAP 6 mmol/L (5-15); CALCIUM 8.4 mg/dL (8.5-10.1); CHLORIDE 107 mmol/L (98-107)
[2019-12-10 05:45] LABS: ALANINE AMINOTRANSFERASE 44 U/L (12-78); ALKALINE PHOSPHATASE 354 U/L (45-117); CREATININE 0.76 mg/dL (0.7-1.3); TOTAL PROTEIN 6.1 g/dL (6.4-8.2)
[2019-12-10 06:23] LABS: MD YES
[2019-12-10 06:25] LABS: ANISOCYTOSIS 1+; BAND#(MANUAL) 0.25 x10^3/uL; BANDS%(MANUAL) 1 % (0-7); HYPOCHROMIA 1+; LYMPH#(MANUAL) 1.72 x10^3/uL (1-3.4); LYMPHS% (MANUAL) 7 % (22-44); MONOS#(MANUAL) 0.49 x10^3/uL (0.3-2.7); MONOS% (MANUAL) 2 % (2-9); MYELOCYTES# (MANUAL) 0.25 x10^3/uL (0-0); MYELOCYTES% (MANUAL) 1 % (0-0); NRBC % (MANUAL) 1 % (0-1); POLYCHROMASIA 1+; SEG#(MANUAL) 21.89 x10^3/uL (1.8-6.8); SEGS% (MANUAL) 89 % (42-75); TARGET CELLS 1+; TOXIC GRAN 1+
[2019-12-10 06:26] LABS: <PLATELET ESTIMATE> ADEQUATE; <PLT MORPHOLOGY> NORMAL PLT MORPH
[2019-12-10 08:19] VITALS: BP 106/72
[2019-12-10] MEDS: FUROSEMIDE 40 MG/4 ML IV SCH ×2 (08:27→21:50)
[2019-12-10] MEDS: HEPARIN 5,000 UNITS/ML, 1ML SQ SCH ×3 (08:27→23:15)
[2019-12-10] MEDS: SODIUM CHLORIDE FLUSH 10ML SYR IVF SCH ×2 (08:28→21:00)
[2019-12-10] MEDS: SENNA/DOCUSATE TABLET PO SCH (09:00)
[2019-12-10] MEDS: PENTOXIFYLLINE 400 MG TABLET.ER PO SCH ×3 (11:19→21:49)
[2019-12-10] MEDS: LACTULOSE 10 GM/15 ML UDC PO SCH ×2 (11:19→21:48)
[2019-12-10] MEDS: SPIRONOLACTONE 100 MG TABLET PO SCH (11:19)
[2019-12-10 12:34] VITALS: BP 97/63
[2019-12-10] MEDS: CEFTRIAXONE PMX 1GM/50ML 50 ML IV SCH (13:12)
[2019-12-10 19:31] VITALS: BP 115/71
[2019-12-10] MEDS: OXYcodone IR 5MG TABLET PO PRN (23:37)
[2019-12-11 00:10] VITALS: BP 105/70
[2019-12-11] MEDS: OXYcodone IR 5MG TABLET PO PRN (04:35)
[2019-12-11 05:11] LABS: MEAN CORPUSCULAR HEMOGLOBIN 37.7 pg (27.5-34.5); MEAN CORPUSCULAR HGB CONC 32.6 g/dL (33.2-36.2); MEAN CORPUSCULAR VOLUME 115.8 fL (81-97); MEAN PLATELET VOLUME 10.3 fL (7.4-10.4); PLATELET COUNT 150 x10^3/uL (130-400); RED BLOOD COUNT 2.47 x10^6/uL (4.38-5.82); RED CELL DISTRIBUTION WIDTH 18.5 % (9.4-14.8)
[2019-12-11 05:19] LABS: INTERNATIONAL NORMALIZED RATIO 1.9 (0.93-1.1); PROTHROMBIN TIME 19.7 Seconds (9.6-11.5)
[2019-12-11] MEDS: ALBUMIN HUMAN 25% 100 ML IV SCH (05:29)
[2019-12-11 05:31] LABS: ALBUMIN 2.3 g/dL (3.4-5.0); ANION GAP 6 mmol/L (5-15); CHLORIDE 106 mmol/L (98-107)
[2019-12-11 05:34] LABS: ALANINE AMINOTRANSFERASE 41 U/L (12-78); ALKALINE PHOSPHATASE 299 U/L (45-117); BILIRUBIN,TOTAL 12.2 mg/dL (0.2-1.0); CREATININE 0.62 mg/dL (0.7-1.3); TOTAL PROTEIN 5.9 g/dL (6.4-8.2)
[2019-12-11 06:10] LABS: MD YES
[2019-12-11 06:12] LABS: ANISOCYTOSIS 1+; BAND#(MANUAL) 1.02 x10^3/uL; BANDS%(MANUAL) 4 % (0-7); EOS#(MANUAL) 2.29 x10^3/uL (0.0-0.4); EOS% (MANUAL) 9 % (1-7); LYMPH#(MANUAL) 1.02 x10^3/uL (1-3.4); LYMPHS% (MANUAL) 4 % (22-44); MONOS#(MANUAL) 1.52 x10^3/uL (0.3-2.7); MONOS% (MANUAL) 6 % (2-9); SEG#(MANUAL) 19.56 x10^3/uL (1.8-6.8); SEGS% (MANUAL) 77 % (42-75)
[2019-12-11 06:13] LABS: <PLATELET ESTIMATE> ADEQUATE; <PLT MORPHOLOGY> NORMAL PLT MORPH; HYPOCHROMIA 1+; POLYCHROMASIA 1+; TARGET CELLS 1+
[2019-12-11 06:15] LABS: TOXIC GRAN 1+
[2019-12-11 06:44] VITALS: BP 109/71
[2019-12-11] MEDS: HEPARIN 5,000 UNITS/ML, 1ML SQ SCH (08:00)
[2019-12-11] MEDS ORDERED: POTASSIUM CHLORIDE 20 MEQ TAB.ER.PRT PO ONE (08:30)
[2019-12-11] MEDS: SODIUM CHLORIDE FLUSH 10ML SYR IVF SCH (09:00)
[2019-12-11] MEDS ORDERED: FURO40TA6 PO (09:46)
[2019-12-11] MEDS: LACTULOSE 10 GM/15 ML UDC PO SCH (09:50)
[2019-12-11] MEDS: SENNA/DOCUSATE TABLET PO SCH (09:50)
[2019-12-11] MEDS: PENTOXIFYLLINE 400 MG TABLET.ER PO SCH (09:50)
[2019-12-11] MEDS: FUROSEMIDE 40 MG/4 ML IV SCH (09:50)
[2019-12-11] MEDS: SPIRONOLACTONE 100 MG TABLET PO SCH (09:50)
[2019-12-11 12:48] VITALS: BP 117/75
[2019-12-11] MEDS: CEFTRIAXONE PMX 1GM/50ML 50 ML IV SCH (13:09)
== END 2019-12-11 14:10 | disposition home or self-care (01) | DRG 640 ==
LOC: ED 22:45 → EDIP 22:50 → 4NE 12-09 00:10 → 3N 12-09 17:08 → DCLOUNGE 12-11 14:00
PROVIDERS: ADMIT Family Medicine; ATTEND Hospitalist
DX: E87.70 Fluid overload, unspecified (principal); E43 Unspecified severe protein-calorie malnutrition; J81.1 Chronic pulmonary edema; D68.9 Coagulation defect, unspecified; F17.200 Nicotine dependence, unspecified, uncomplicated; I48.0 Paroxysmal atrial fibrillation; K31.9 Disease of stomach and duodenum, unspecified; K70.11 Alcoholic hepatitis with ascites; K70.31 Alcoholic cirrhosis of liver with ascites; D75.89 Other specified diseases of blood and blood-forming organs; D53.9 Nutritional anemia, unspecified; N50.89 Other specified disorders of the male genital organs; Z83.3 Family history of diabetes mellitus; Z85.05 Personal history of malignant neoplasm of liver; Z68.32 Body mass index [BMI] 32.0-32.9, adult
CPT/HCPCS: 36415; 71045; 76700; 80053; 80307; 82140; 83690; 83735; 84100; 84145; 85025; 85610; 85730; 93005; G0378; J0696; J1644; J1940; P9047

== ENCOUNTER 2020-12-31 00:12 | Emergency (ER) | payer SELFPAY ==
[~2020-12-31] VITALS: Ht 177.8 cm; Wt 91.0 kg
[~2020-12-31 00:12] MED LIST changes: +FURO40TA6 PO
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
--- NOTE | 2020-12-31 01:02 | NUR ---
LAB AT BEDSIDE.
[2020-12-31 01:11] LABS: BASOPHILS % (AUTO) 1 % (0-1); EOSINOPHILS % (AUTO) 1 % (1-7); LYMPHOCYTES % (AUTO) 12 % (22-44); MEAN CORPUSCULAR HEMOGLOBIN 36.5 pg (27.5-34.5); MEAN CORPUSCULAR HGB CONC 35.7 g/dL (33.2-36.2); MONOCYTES % (AUTO) 8 % (2-9); NEUTROPHILS % (AUTO) 78 % (42-75); PLATELET COUNT 183 x10^3/uL (130-400); RED CELL DISTRIBUTION WIDTH 16.2 % (9.4-14.8)
[2020-12-31] MEDS ORDERED: ACETAMINOPHEN 500 MG TABLET ONE (01:14)
[2020-12-31] MEDS ORDERED: IBUPROFEN 600 MG TABLET ONE (01:15)
[2020-12-31 01:20] LABS: ALBUMIN 3.2 g/dL (3.4-5.0); ANION GAP 6 mmol/L (5-15); CALCIUM 9.3 mg/dL (8.5-10.1); CHLORIDE 107 mmol/L (98-107)
[2020-12-31 01:26] LABS: ALANINE AMINOTRANSFERASE 63 U/L (12-78); ALKALINE PHOSPHATASE 173 U/L (45-117); BILIRUBIN,TOTAL 1.2 mg/dL (0.2-1.0); CREATININE 0.74 mg/dL (0.7-1.3); TOTAL PROTEIN 8.1 g/dL (6.4-8.2)
[2020-12-31] MEDS ORDERED: LORazepam 1MG TABLET PO ONE (01:30)
[2020-12-31] MEDS ORDERED: IBUPROFEN 600 MG TABLET PO ONE (01:30)
[2020-12-31] MEDS ORDERED: ACETAMINOPHEN 500 MG TABLET PO ONE (01:30)
[2020-12-31] MEDS ORDERED: LORazepam 1MG TABLET ONE (01:55)
[2020-12-31 02:28] VITALS: BP 124/60
== END 2020-12-31 02:30 | disposition home or self-care (01) ==
LOC: ED 02:24
DX: R56.9 Unspecified convulsions (principal); Z72.89 Other problems related to lifestyle
CPT/HCPCS: 36415; 80053; 80320; 85025; 93005; 99284; G0480